=== PATIENT | male | born 1940 | race American Indian/Alaskan Native ===

== ENCOUNTER 2020-11-23 18:12 | Inpatient (IN) | payer MEDICARE, OTHER ==
--- NOTE | 2020-11-23 18:33 | Event Note ---
ED Screening Note ED Screening Note: Patient is an 80-year-old male that comes to the emergency room via EMS with an oxygen saturation of 90 on nasal cannula. He has many major medical problems and is a poor informant. Charge nurse aware of presentation and need for room. This initial assessment/diagnostic orders/clinical plan/treatment(s) is/are subject to change based on patients health status, clinical progression and re- assessment by fellow clinical providers in the ED. Further treatment and workup at subsequent clinical providers discretion. Patient/guardian urged not to elope from the ED as their condition may be serious if not clinically assessed and managed. Initial orders include: ekg xray labs
--- NOTE | 2020-11-23 19:21 | XRay Report ---
CHEST 1 VIEW INDICATION: Chest Pain COMPARISON: None FINDINGS: Support devices: None Heart: Within normal limits. Previous sternotomy. Lungs/Pleura: Suboptimal inspiration, with what is thought to be atelectasis, worse on the left. No c onvincing evidence of acute disease. IMPRESSION: 1. No definite acute disease. Signer Name: Lawrence Cruz MD Signed: 11/23/2020 7:17 PM Workstation Name: [id number]
[2020-11-23 19:45] LABS: Basophils % (Auto) 0.3 % (0.0-1.8); Hematocrit 35.5 % (35.5-45.6); Hemoglobin 12.3 gm/dl (11.8-15.2); Lymphocytes # (Auto) 0.4 K/mm3 (1.2-5.4); Lymphocytes % (Auto) 6.8 % (13.4-35.0); Mean Corpuscular HGB Conc 35 % (32-34); Mean Corpuscular Volume 98 fl (84-94); Monocytes # (Auto) 0.2 K/mm3 (0.0-0.8); Monocytes % (Auto) 4.2 % (0.0-7.3); Platelet Count 201 K/mm3 (140-440); Red Blood Count 3.62 M/mm3 (3.65-5.03); Red Cell Distribution Width 13.9 % (13.2-15.2)
[2020-11-23 19:56] LABS: INR 1.49 (0.87-1.13)
[2020-11-23 20:09] LABS: Albumin 3.5 g/dL (3.9-5); Calcium 9.3 mg/dL (8.4-10.2)
[2020-11-23] MEDS ORDERED: SODIUM CHLORIDE 0.9% 1000 ML 1,000 ML IV ONE (20:41)
[2020-11-23 20:48] LABS: Chol/HDL Ratio 6.63 %
--- NOTE | 2020-11-23 21:03 | Emergency Department Report ---
ED Syncope HPI - General Chief Complaint: Syncope Stated Complaint: LETHARGIC Time Seen by Provider: 11/23/20 18:32 Source: patient Exam Limitations: other - History of Present Illness Initial Comments: 80-year-old male with a past medical history of end-stage renal disease on di alysis Friday, , Friday, diabetes, elevated cholesterol presents to the hospital with a syncopal episode during dialysis. Patient is oriented to the to self, knows he is at a hospital, but does not recall the year. He denies any pain. He is noticeably dyspneic with audible rhonchorous breath sounds. He does report a cough without known fever. Patient's mastic man is Neal Rust Patient comes with his dialysis transportation sheet allergies and pmhx are not listed. Meds include atorvastatin, Midorin, Cilostazol, Plavix, sucroferric Oxyhydroxide, gabapentin, Tums, Dialyvite, and insullin Lispro pt has likely has some mild dementia and unable to provide the missing i nformation. - Related Data Allergies/Adverse Reactions: Allergies No Known Allergies Allergy (Verified 11/24/20 05:46) Home Medications: Ambulatory Orders AtorvaSTATin [Lipitor] 10 mg PO QHS 11/23/20 Calcium Carbonate [Tums Ultra Strength] 940 mg PO TID 11/23/20 Clopidogrel [Plavix] 75 mg PO QDAY 11/23/20 Gabapentin [Neurontin] 100 mg PO QHS 11/23/20 Lispro Insulin [HumaLOG] 0 unit SQ ACHS 11/23/20 Sucroferric Oxyhydroxide(Nf) [Velphoro (Nf)] 500 mg PO TID 11/23/20 cilostazoL [Pletal] 50 mg PO BID 11/23/20 Apixaban [Eliquis] 5 mg PO BID 11/24/20 ED Review of Systems ROS: Stated complaint: LETHARGIC Other details as noted in HPI Comment: All other systems reviewed and negative ED Past Medical Hx - Past Medical History Hx Renal Disease: Yes (esrd dialysis) - Surgical History Additional Surgical History: bilateral aka - Social History Smoking Status: Unknown if ever smoked - Medications Home Medications: Home Medications Medication Instructions Recorded Confirmed Last Taken Type AtorvaSTATin [Lipitor] 10 mg PO QHS 11/23/20 11/23/20 Unknown History Calcium Carbonate [Tums Ultra 940 mg PO TID 11/23/20 11/23/20 Unknown History Strength] Clopidogrel [Plavix] 75 mg PO QDAY 11/23/20 11/23/20 Unknown History Gabapentin [Neurontin] 100 mg PO QHS 11/23/20 11/23/20 Unknown History Lispro Insulin [HumaLOG] 0 unit SQ ACHS 11/23/20 11/23/20 Unknown History Sucroferric Oxyhydroxide(Nf) 500 mg PO TID 11/23/20 11/23/20 Unknown History [Velphoro (Nf)] cilostazoL [Pletal] 50 mg PO BID 11/23/20 11/23/20 Unknown History Apixaban [Eliquis] 5 mg PO BID 11/24/20 11/24/20 11/23/20 08:00 History ED Physical Exam - General Limitations: Physical Limitation - Other Other exam information: General: No acute distress Head: Atraumatic Eyes: normal appearance ENT: Moist mucous membranes Neck: Normal appearance, no midline tenderness Chest: Clear to auscultation bilaterally CV: Mild tachycardia regular rhythm, left arm dialysis access Abdomen: Soft, normal bowel sounds, nontender, nondistended, no rebound or guarding Back: Normal inspection Extremity: Bilateral AKA Neuro: Alert O x 2, no facial asymmetry, speech clear, no gross motor sensory deficit Psych: Appropriate behavior Skin: No rash ED Course Vital Signs 11/23/20 11/23/20 11/23/20 18:27 18:51 18:55 Temperature 98.6 F 98.2 F Pulse Rate 70 107 H Respiratory 18 18 17 Rate Blood Pressure 122/61 Blood Pressure 112/63 [Right] O2 Sat by Pulse 90 97 Oximetry 11/23/20 11/23/20 11/23/20 19:01 19:15 19:31 Temperature Pulse Rate 103 H 102 H 106 H Respiratory 20 21 21 Rate Blood Pressure 116/57 116/57 122/73 Blood Pressure [Right] O2 Sat by Pulse 82 L Oximetry 11/23/20 11/23/20 11/23/20 19:45 20:01 20:10 Temperature 99.5 F Pulse Rate 106 H 113 H Respiratory 26 H 35 H Rate Blood Pressure 129/70 135/60 Blood Pressure [Right] O2 Sat by Pulse 98 Oximetry 1211/23/20 11/23/20 20:15 20:31 20:45 Temperature Pulse Rate 109 H 114 H 108 H Respiratory 36 H 26 H 24 Rate Blood Pressure 135/60 135/60 135/60 Blood Pressure [Right] O2 Sat by Pulse 100 Oximetry 11/23/20 11/23/20 11/23/20 21:00 21:15 21:31 Temperature Pulse Rate 110 H 110 H 110 H Respiratory 26 H 28 H 25 H Rate Blood Pressure 132/70 132/70 132/70 Blood Pressure [Right] O2 Sat by Pulse 96 98 98 Oximetry 11/23/20 11/23/20 11/23/20 21:45 22:01 22:15 Temperature Pulse Rate 112 H 116 H 110 H Respiratory 29 H 29 H 25 H Rate Blood Pressure 132/70 128/59 128/59 Blood Pressure [Right] O2 Sat by Pulse 99 100 100 Oximetry 11/23/20 11/23/20 11/23/20 22:31 22:35 23:03 Temperature Pulse Rate 118 H 117 H 113 H Respiratory 29 H 30 H 23 Rate Blood Pressure 128/59 128/59 128/59 Blood Pressure [Right] O2 Sat by Pulse 98 98 Oximetry 11/23/20 11/23/20 11/24/20 23:15 23:31 04:18 Temperature Pulse Rate 108 H 116 H 126 H Respiratory 30 H 19 33 H Rate Blood Pressure 128/59 128/59 Blood Pressure 122/63 [Right] O2 Sat by Pulse 95 Oximetry 11/24/20 11/24/20 11/24/20 04:53 06:35 08:30 Temperature Pulse Rate 121 H 118 H 117 H Respiratory 32 H 40 H 30 H Rate Blood Pressure 119/66 Blood Pressure 128/94 [Right] O2 Sat by Pulse 100 100 100 Oximetry 11/24/20 11/24/20 11/24/20 09:00 09:35 11:22 Temperature 99.7 F H Pulse Rate 117 H 118 H Respiratory 30 H 30 H 30 H Rate Blood Pressure Blood Pressure 103/67 104/59 [Right] O2 Sat by Pulse 100 100 100 Oximetry 11/24/20 11/24/20 11/24/20 12:02 12:24 12:41 Temperature Pulse Rate 126 H 119 H Respiratory 13 18 Rate Blood Pressure Blood Pressure [Right] O2 Sat by Pulse 95 100 100 Oximetry 11/24/20 11/24/20 11/24/20 12:51 13:01 13:11 Temperature Pulse Rate 124 H 125 H Respiratory 19 19 18 Rate Blood Pressure Blood Pressure [Right] O2 Sat by Pulse 100 96 96 Oximetry 11/24/20 11/24/20 11/24/20 13:21 13:31 13:41 Temperature Pulse Rate 120 H 115 H 120 H Respiratory 23 23 17 Rate Blood Pressure Blood Pressure [Right] O2 Sat by Pulse 96 97 97 Oximetry 11/24/20 11/24/20 11/24/20 13:51 14:01 14:11 Temperature Pulse Rate 113 H 120 H 116 H Respiratory 23 21 22 Rate Blood Pressure Blood Pressure [Right] O2 Sat by Pulse 98 98 99 Oximetry 11/24/20 11/24/20 11/24/20 14:21 14:31 14:40 Temperature Pulse Rate 115 H 104 H 108 H Respiratory 21 22 23 Rate Blood Pressure Blood Pressure [Right] O2 Sat by Pulse 99 99 99 Oximetry 11/24/20 11/24/20 11/24/20 14:45 14:51 15:00 Temperature Pulse Rate 115 H 133 H 114 H Respiratory 16 16 29 H Rate Blood Pressure 128/74 128/52 Blood Pressure 128/74 [Right] O2 Sat by Pulse 99 99 98 Oximetry 11/24/20 11/24/20 11/24/20 15:11 15:21 15:31 Temperature Pulse Rate 117 H 113 H 113 H Respiratory 23 20 14 Rate Blood Pressure 128/52 128/52 128/52 Blood Pressure [Right] O2 Sat by Pulse 98 98 100 Oximetry 11/24/20 11/24/20 15:40 16:01 Temperature Pulse Rate 123 H Respiratory 23 Rate Blood Pressure 128/52 Blood Pressure [Right] O2 Sat by Pulse 99 97 Oximetry ED Medical Decision Making - Lab Data Result diagrams: 11/23/20 19:28 11/24/20 10:32 Lab Results 11/23/20 11/23/20 11/23/20 Range/Units 18:55 19:28 19:28 WBC 5.8 (4.5-11.0) K/mm3 RBC 3.62 L (3.65-5.03) M/mm3 Hgb 12.3 (11.8-15.2) gm/dl Hct 35.5 (35.5-45.6) % MCV 98 H (84-94) fl MCH 34 H (28-32) pg MCHC 35 H (32-34) % RDW 13.9 (13.2-15.2) % Plt Count 201 (140-440) K/mm3 Lymph % (Auto) 6.8 L (13.4-35.0) % [place] % (Auto) 4.2 (0.0-7.3) % Eos % (Auto) 0.0 (0.0-4.3) % Baso % (Auto) 0.3 (0.0-1.8) % Lymph # (Auto) 0.4 L (1.2-5.4) K/mm3 [place] # (Auto) 0.2 (0.0-0.8) K/mm3 Eos # (Auto) 0.0 (0.0-0.4) K/mm3 Baso # (Auto) 0.0 (0.0-0.1) K/mm3 Seg Neutrophils % 88.7 H (40.0-70.0) % Seg Neutrophils # 5.2 (1.8-7.7) K/mm3 PT (12.2-14.9) Sec. INR (0.87-1.13) D-Dimer (0-234) ng/mlDDU ABG pH 7.382 (7.350-7.450) pH Units ABG pCO2 35.6 mm Hg ABG pO2 55.0 L (80.0-90.0) mm Hg ABG HCO3 20.7 (20.0-26.0) mmol/L ABG O2 Saturation 87.5 L (95.0-99.0) % ABG O2 Content 14.0 (0.0-44) ABG Base Excess -3.8 L (-2.0-3.0) mmol/L ABG Hemoglobin 11.6 L (14.0-18.0) gm/dl ABG Carboxyhemoglobin 1.4 (0.0-5.0) % ABG Methemoglobin 0.8 (0.0-1.5) % Oxyhemoglobin 85.6 L (95.0-99.0) % FiO2 21 % Sodium 140 (137-145) mmol/L Potassium 5.3 H (3.6-5.0) mmol/L Chloride 94.4 L (98-107) mmol/L Carbon Dioxide 22 (22-30) mmol/L Anion Gap 29 mmol/L BUN 46 H (9-20) mg/dL Creatinine 5.7 H (0.8-1.3) mg/dL Estimated GFR 10 ml/min BUN/Creatinine Ratio 8 % Glucose 220 H (75-100) mg/dL Lactic Acid (0.7-2.0) mmol/L Calcium 9.3 (8.4-10.2) mg/dL Total Bilirubin 0.60 (0.1-1.2) mg/dL AST 43 H (5-40) units/L ALT 39 (7-56) units/L Alkaline Phosphatase 70 (35-129) units/L Troponin T 0.376 H* (0.00-0.029) ng/mL NT-Pro-B Natriuret Pep 13609 H (0-900) pg/mL Total Protein 7.6 (6.3-8.2) g/dL Albumin 3.5 L (3.9-5) g/dL Albumin/Globulin Ratio 0.9 % Triglycerides 202 H (2-149) mg/dL Cholesterol 252 H (50-199) mg/dL LDL Cholesterol Direct 165 H (50-130) mg/dL HDL Cholesterol 38 L (40-59) mg/dL Cholesterol/HDL Ratio 6.63 % 11/23/20 11/23/20 11/23/20 Range/Units 19:28 19:28 19:28 WBC (4.5-11.0) K/mm3 RBC (3.65-5.03) M/mm3 Hgb (11.8-15.2) gm/dl Hct (35.5-45.6) % MCV (84-94) fl MCH (28-32) pg MCHC (32-34) % RDW (13.2-15.2) % Plt Count (140-440) K/mm3 Lymph % (Auto) (13.4-35.0) % [place] % (Auto) (0.0-7.3) % Eos % (Auto) (0.0-4.3) % Baso % (Auto) (0.0-1.8) % Lymph # (Auto) (1.2-5.4) K/mm3 [place] # (Auto) (0.0-0.8) K/mm3 Eos # (Auto) (0.0-0.4) K/mm3 Baso # (Auto) (0.0-0.1) K/mm3 Seg Neutrophils % (40.0-70.0) % Seg Neutrophils # (1.8-7.7) K/mm3 PT 17.9 H (12.2-14.9) Sec. INR 1.49 H (0.87-1.13) D-Dimer 1524 H (0-234) ng/mlDDU ABG pH (7.350-7.450) pH Units ABG pCO2 mm Hg ABG pO2 (80.0-90.0) mm Hg ABG HCO3 (20.0-26.0) mmol/L ABG O2 Saturation (95.0-99.0) % ABG O2 Content (0.0-44) ABG Base Excess (-2.0-3.0) mmol/L ABG Hemoglobin (14.0-18.0) gm/dl ABG Carboxyhemoglobin (0.0-5.0) % ABG Methemoglobin (0.0-1.5) % Oxyhemoglobin (95.0-99.0) % FiO2 % Sodium (137-145) mmol/L Potassium (3.6-5.0) mmol/L Chloride (98-107) mmol/L Carbon Dioxide (22-30) mmol/L Anion Gap mmol/L BUN (9-20) mg/dL Creatinine (0.8-1.3) mg/dL Estimated GFR ml/min BUN/Creatinine Ratio % Glucose (75-100) mg/dL Lactic Acid 3.40 H* (0.7-2.0) mmol/L Calcium (8.4-10.2) mg/dL Total Bilirubin (0.1-1.2) mg/dL AST (5-40) units/L ALT (7-56) units/L Alkaline Phosphatase (35-129) units/L Troponin T (0.00-0.029) ng/mL NT-Pro-B Natriuret Pep (0-900) pg/mL Total Protein (6.3-8.2) g/dL Albumin (3.9-5) g/dL Albumin/Globulin Ratio % Triglycerides (2-149) mg/dL Cholesterol (50-199) mg/dL LDL Cholesterol Direct (50-130) mg/dL HDL Cholesterol (40-59) mg/dL Cholesterol/HDL Ratio % // Range/Units 21:41 WBC (4.5-11.0) K/mm3 RBC (3.65-5.03) M/mm3 Hgb (11.8-15.2) gm/dl Hct (35.5-45.6) % MCV (84-94) fl MCH (28-32) pg MCHC (32-34) % RDW (13.2-15.2) % Plt Count (140-440) K/mm3 Lymph % (Auto) (13.4-35.0) % [place] % (Auto) (0.0-7.3) % Eos % (Auto) (0.0-4.3) % Baso % (Auto) (0.0-1.8) % Lymph # (Auto) (1.2-5.4) K/mm3 [place] # (Auto) (0.0-0.8) K/mm3 Eos # (Auto) (0.0-0.4) K/mm3 Baso # (Auto) (0.0-0.1) K/mm3 Seg Neutrophils % (40.0-70.0) % Seg Neutrophils # (1.8-7.7) K/mm3 PT (12.2-14.9) Sec. INR (0.87-1.13) D-Dimer (0-234) ng/mlDDU ABG pH (7.350-7.450) pH Units ABG pCO2 mm Hg ABG pO2 (80.0-90.0) mm Hg ABG HCO3 (20.0-26.0) mmol/L ABG O2 Saturation (95.0-99.0) % ABG O2 Content (0.0-44) ABG Base Excess (-2.0-3.0) mmol/L ABG Hemoglobin (14.0-18.0) gm/dl ABG Carboxyhemoglobin (0.0-5.0) % ABG Methemoglobin (0.0-1.5) % Oxyhemoglobin (95.0-99.0) % FiO2 % Sodium (137-145) mmol/L Potassium (3.6-5.0) mmol/L Chloride (98-107) mmol/L Carbon Dioxide (22-30) mmol/L Anion Gap mmol/L BUN (9-20) mg/dL Creatinine (0.8-1.3) mg/dL Estimated GFR ml/min BUN/Creatinine Ratio % Glucose (75-100) mg/dL Lactic Acid 2.30 H* (0.7-2.0) mmol/L Calcium (8.4-10.2) mg/dL Total Bilirubin (0.1-1.2) mg/dL AST (5-40) units/L ALT (7-56) units/L Alkaline Phosphatase (35-129) units/L Troponin T (0.00-0.029) ng/mL NT-Pro-B Natriuret Pep (0-900) pg/mL Total Protein (6.3-8.2) g/dL Albumin (3.9-5) g/dL Albumin/Globulin Ratio % Triglycerides (2-149) mg/dL Cholesterol (50-199) mg/dL LDL Cholesterol Direct (50-130) mg/dL HDL Cholesterol (40-59) mg/dL Cholesterol/HDL Ratio % - EKG Data -: EKG Interpreted by Me (Anterior infarct, PVCs) EKG shows normal: sinus rhythm Rate: tachycardia - Radiology Data Radiology results: report reviewed Chest x-ray: Suboptimal inspiration, which is what is thought to be atelectasis, worse on the left. No convincing evidence of acute disease CT head: No acute findings cta chest: no pe, b/l pneumonia L>R - Medical Decision Making 80-year-old male presents to the hospital after syncopal episode in dialysis. Hypoxic upon arrival with ABG to confirm hypoxia on room air. CT angio chest confirms bilateral interstitial infiltrates. Patient in respiratory isolation for Covid pneumonia. Patient received Rocephin and azithromycin for community- acquired pneumonia. O2 saturation improved with supplemental oxygenation. No signs of septic shock or severe sepsis. Lactic acidosis improved with mild IV hydration. Mild hyperkalemia noted likely secondary to patient not completing dialysis. Patient received Decadron x1 and ID consult and nephrology consult ordered. Patient to be admitted to hospital service for further treatment Critical Care Time: No Critical care attestation.: If time is entered above; I have spent that time in minutes in the direct care of this critically ill patient, excluding procedure time. ED Disposition Clinical Impression: Bilateral interstitial pneumonia, Hypoxia, Suspected COVID-19 virus infection, ESRD on dialysis, Syncope Disposition: OP ADMIT IP TO THIS HOSP Is pt being admited?: Yes Condition: Stable Time of Disposition: 00:15 (Dr Ellsworth/hospitalist)
[2020-11-23 21:04] LABS: ABG Base Excess -3.8 mmol/L (-2.0-3.0); ABG HCO3 20.7 mmol/L (20.0-26.0); ABG Methemoglobin 0.8 % (0.0-1.5); ABG Oxygen Saturation 87.5 % (95.0-99.0); ABG PCO2 35.6 mm Hg; ABG PH 7.382 pH Units (7.350-7.450)
--- NOTE | 2020-11-23 23:22 | Cat Scan Report ---
CT HEAD WITHOUT CONTRAST INDICATION: syncope during dialysis, hypoxia TECHNIQUE: All CT scans at this location are performed using CT dose reduction for ALARA by means of automated exposure control. COMPARISON: None available. FINDINGS: BRAIN: No hemorrhage or mass effect are seen. No evidence of acute infarction is noted. Moderate whit e matter microvascular changes are seen. Mild atrophic changes are noted. Mild motion artifact is see n. ORBITS: Normal as visualized. SOFT TISSUES OF HEAD: Normal. CALVARIUM: Normal. VISUALIZED PARANASAL SINUSES AND MASTOID AIR CELLS: Clear. ADDITIONAL FINDINGS: None. IMPRESSION: No acute intracranial abnormality. Signer Name: Rene Chapin MD Signed: 11/23/2020 11:17 PM Workstation Name: [id number]
--- NOTE | 2020-11-23 23:37 | Cat Scan Report ---
CTA CHEST WITH IV CONTRAST INDICATION: hypoxia, syncope, sob CONTRAST: 100 cc Omnipaque 350 IV COMPARISON: Portable chest x-ray tonight Three-plane MIP reconstructions were produced. All CT scans at this location are performed using CT d ose reduction for ALARA by means of automated exposure control. FINDINGS: Median sternotomy changes are noted. No significant axillary lesions are seen. Prominent bi lateral gynecomastia is noted. Visualized portions of the upper abdomen show mild renal atrophy bilat erally. Possibly there are small gallstones though this may be artifactual. No acute gallbladder abno rmalities are seen. No mediastinal or hilar masses are noted. Elevation of the left hemidiaphragm is seen. No pneumothorax or pneumomediastinum are noted. No obvious endobronchial focal lesions are seen though there probably is a small amount of mucus posteriorly in the trachea and mainstem bronchi. Mo derate alveolar type infiltrate is seen in the left lower lobe consistent with pneumonitis. Air bronc hograms are seen. Volume loss is noted. Patchy moderate infiltrate is seen in the right lower lobe an d right upper lobe and a small amount of left upper lobe infiltrate and atelectasis are noted. Mild s imilar changes are seen in the upper lobes. Bilateral upper lobe slight focal densities probably are part of interstitial infiltrate to have a slightly nodular appearance. Coronary artery catheter cases are moderately prominent. Aorta shows moderate atherosclerotic changes but no aneurysmal dilatation or evidence of dissection. Adequate opacification of the pulmonary arterial system was achieved. Motion artifact degrades evalua tion of some of the smaller arteries. However, no obvious evidence of pulmonary thromboembolism is se en. IMPRESSION: 1. No evidence of pulmonary embolism was 2. Evidence of bilateral pneumonia, worse on the left Signer Name: Rene Chapin MD Signed: 11/23/2020 11:32 PM Workstation Name: [id number]
[2020-11-24] MEDS ORDERED: cefTRIAXone/NS 2 GM/100 ML 2 GM/100 ML BAG IV ONE (00:04)
[2020-11-24] MEDS ORDERED: AZITHROMYCIN 500 MG in SODIUM CHLORIDE 0.9% 250ML 250 ML IV ONE (00:04)
[2020-11-24] MEDS ORDERED: dexAMETHasone 4 MG/ML VIAL IV ONE (00:05)
[2020-11-24] MEDS ORDERED: DEXTROSE 50% IN WATER (25GM) 50 ML SYRINGE IV PRN (00:58)
[2020-11-24] MEDS ORDERED: ACETAMINOPHEN 325 MG TAB PO PRN (00:58)
[2020-11-24] MEDS ORDERED: ONDANSETRON 4 MG/2 ML INJ IV PRN (00:58)
[2020-11-24] MEDS ORDERED: MORPHINE 2 MG/1 ML INJ IV PRN (00:58)
[2020-11-24] MEDS ORDERED: MAGNESIUM HYDROXIDE (MOM) ORAL LIQD UDC PO PRN (00:58)
--- NOTE | 2020-11-24 01:25 | History and Physical Report ---
History of Present Illness Date of examination: 11/24/20 Date of admission: 11/24/2019 Chief complaint: syncope History of present illness: 80-year-old male with known history of end-stage renal disease on dialysis on Tuesdays, and Saturdays, diabetes mellitus and dyslipidemia was brought into the emergency room with a syncopal episode during dialysis. Bobby vences is a poor historian but was able to answer questions. He denies any fever or chills, no chest pain, states he has been having some cough which is nonproductive. Upon arrival in the emergency room patient was seen some mild respiratory distress. Work-up today, CT scan of the head did not reveal any acute findings CT angiogram of the chest reveals bilateral pneumonia worse on the left Patient has been admitted for syncope, pneumonia with possible COVID-19. Past History Past Medical History: diabetes, dialysis, ESRD, hyperlipidemia Past Surgical History: Other (Bilateral AKA) Social history: no significant social history Family history: no significant family history Medications and Allergies Allergies Allergy/AdvReac Type Severity Reaction Status Date / Time No Known Allergies Allergy Verified 11/24/20 05:46 Home Medications Medication Instructions Recorded Confirmed Last Taken Type AtorvaSTATin [Lipitor] 10 mg PO QHS 11/23/20 11/23/20 Unknown History Calcium Carbonate [Tums Ultra 940 mg PO TID 11/23/20 11/23/20 Unknown History Strength] Clopidogrel [Plavix] 75 mg PO QDAY 11/23/20 11/23/20 Unknown History Gabapentin [Neurontin] 100 mg PO QHS 11/23/20 11/23/20 Unknown History Lispro Insulin [HumaLOG] 0 unit SQ ACHS 11/23/20 11/23/20 Unknown History Sucroferric Oxyhydroxide(Nf) 500 mg PO TID 11/23/20 11/23/20 Unknown History [Velphoro (Nf)] cilostazoL [Pletal] 50 mg PO BID 11/23/20 11/23/20 Unknown History Apixaban [Eliquis] 5 mg PO BID 11/24/20 11/24/20 11/23/20 08:00 History Active Meds: Active Medications Acetaminophen (Acetaminophen 325 Mg Tab) 650 mg PO Q4H PRN PRN Reason: Pain MILD(1-3)/Fever >100.5/CARDENAS Dextrose (Dextrose 50% In Water (25gm) 50 Ml Syringe) 50 ml IV Q30MIN PRN; Protocol PRN Reason: Hypoglycemia Heparin Sodium (Porcine) (Heparin 5,000 Unit/1 Ml Vial) 5,000 unit SUB-Q Q8HR [facility] Ceftriaxone Sodium (Rocephin/Ns 2 Gm/100 Ml) 2 gm in 100 mls @ 200 mls/hr IV Q24H [facility]; Protocol Azithromycin 500 mg/ Sodium (Chloride) 250 mls @ 250 mls/hr IV Q24H [facility]; Protocol Insulin Human Lispro (Insulin Lispro 100 Unit/Ml Vial 3 Ml) 0 unit SUB-Q ACHS [facility]; Protocol Magnesium Hydroxide (Magnesium Hydroxide (Mom) Oral Liqd Udc) 30 ml PO Q4H PRN PRN Reason: Constipation Morphine Sulfate (Morphine 2 Mg/1 Ml Inj) 2 mg IV Q4H PRN PRN Reason: Pain, Moderate (4-6) Ondansetron HCl (Ondansetron 4 Mg/2 Ml Inj) 4 mg IV Q8H PRN PRN Reason: Nausea And Vomiting Sodium Chloride (Sodium Chloride 0.9% 10 Ml Flush Syringe) 10 ml IV BID [facility] Sodium Chloride (Sodium Chloride 0.9% 10 Ml Flush Syringe) 10 ml IV PRN PRN PRN Reason: LINE FLUSH Review of Systems Constitutional: no fever, no chills Ears, nose, mouth and throat: no nasal congestion, no sore throat Cardiovascular: no chest pain, no palpitations Respiratory: no cough, no shortness of breath Gastrointestinal: no abdominal pain, no nausea, no vomiting, no diarrhea Genitourinary Male: no dysuria, no hematuria, no flank pain, no nocturia Musculoskeletal: no neck pain, no low back pain Integumentary: no rash, no pruritis Neurological: no headaches, no confusion Psychiatric: no anxiety, no depression Exam - Constitutional Vitals: Temp Pulse Resp BP Pulse Ox 99.5 F 118 H 29 H 128/59 98 11/23/20 20:10 11/23/20 22:31 11/23/20 22:31 11/23/20 22:31 11/23/20 22:31 General appearance: Present: no acute distress, well-nourished - EENT Eyes: Present: PERRL, EOM intact. Absent: scleral icterus ENT: hearing intact, clear oral mucosa, dentition normal - Neck Neck: Present: supple, normal ROM - Respiratory Respiratory effort: normal Respiratory: bilateral: diminished - Cardiovascular Rhythm: regular Heart Sounds: Present: S1 & S2. Absent: gallop, systolic murmur, diastolic murmur, rub - Extremities Extremities: abnormal (Kobe AKA) Peripheral Pulses: within normal limits - Abdominal General gastrointestinal: Present: soft, non-tender, non-distended, normal bowel sounds. Absent: mass - Integumentary Integumentary: Present: clear, warm, dry. Absent: rash - Musculoskeletal Musculoskeletal: strength equal bilaterally - Psychiatric Psychiatric: appropriate mood/affect, intact judgment & insight, memory intact, cooperative - Neurologic Neurologic: CNII-XII intact, no focal deficits, moves all extremities HEART Score - HEART Score Troponin: Troponin T 0.376 ng/mL (0.00-0.029) H* 11/23/20 19:28 Results - Labs CBC & Chem 7: 11/25/20 03:39 11/26/20 04:30 Labs: Abnormal lab results 11/23/20 11/23/20 11/23/20 Range/Units 18:55 19:28 19:28 RBC 3.62 L (3.65-5.03) M/mm3 MCV 98 H (84-94) fl MCH 34 H (28-32) pg MCHC 35 H (32-34) % Lymph % (Auto) 6.8 L (13.4-35.0) % Lymph # (Auto) 0.4 L (1.2-5.4) K/mm3 Seg Neutrophils % 88.7 H (40.0-70.0) % PT (12.2-14.9) Sec. INR (0.87-1.13) D-Dimer (0-234) ng/mlDDU ABG pO2 55.0 L (80.0-90.0) mm Hg ABG O2 Saturation 87.5 L (95.0-99.0) % ABG Base Excess -3.8 L (-2.0-3.0) mmol/L ABG Hemoglobin 11.6 L (14.0-18.0) gm/dl Oxyhemoglobin 85.6 L (95.0-99.0) % Potassium 5.3 H (3.6-5.0) mmol/L Chloride 94.4 L (98-107) mmol/L BUN 46 H (9-20) mg/dL Creatinine 5.7 H (0.8-1.3) mg/dL Glucose 220 H (75-100) mg/dL Lactic Acid (0.7-2.0) mmol/L AST 43 H (5-40) units/L Troponin T 0.376 H* (0.00-0.029) ng/mL NT-Pro-B Natriuret Pep 54848 H (0-900) pg/mL Albumin 3.5 L (3.9-5) g/dL Triglycerides 202 H (2-149) mg/dL Cholesterol 252 H (50-199) mg/dL LDL Cholesterol Direct 165 H (50-130) mg/dL HDL Cholesterol 38 L (40-59) mg/dL 11/23/20 11/23/20 11/23/20 Range/Units 19:28 19:28 19:28 RBC (3.65-5.03) M/mm3 MCV (84-94) fl MCH (28-32) pg MCHC (32-34) % Lymph % (Auto) (13.4-35.0) % Lymph # (Auto) (1.2-5.4) K/mm3 Seg Neutrophils % (40.0-70.0) % PT 17.9 H (12.2-14.9) Sec. INR 1.49 H (0.87-1.13) D-Dimer 1524 H (0-234) ng/mlDDU ABG pO2 (80.0-90.0) mm Hg ABG O2 Saturation (95.0-99.0) % ABG Base Excess (-2.0-3.0) mmol/L ABG Hemoglobin (14.0-18.0) gm/dl Oxyhemoglobin (95.0-99.0) % Potassium (3.6-5.0) mmol/L Chloride (98-107) mmol/L BUN (9-20) mg/dL Creatinine (0.8-1.3) mg/dL Glucose (75-100) mg/dL Lactic Acid 3.40 H* (0.7-2.0) mmol/L AST (5-40) units/L Troponin T (0.00-0.029) ng/mL NT-Pro-B Natriuret Pep (0-900) pg/mL Albumin (3.9-5) g/dL Triglycerides (2-149) mg/dL Cholesterol (50-199) mg/dL LDL Cholesterol Direct (50-130) mg/dL HDL Cholesterol (40-59) mg/dL 11/23/20 Range/Units 21:41 RBC (3.65-5.03) M/mm3 MCV (84-94) fl MCH (28-32) pg MCHC (32-34) % Lymph % (Auto) (13.4-35.0) % Lymph # (Auto) (1.2-5.4) K/mm3 Seg Neutrophils % (40.0-70.0) % PT (12.2-14.9) Sec. INR (0.87-1.13) D-Dimer (0-234) ng/mlDDU ABG pO2 (80.0-90.0) mm Hg ABG O2 Saturation (95.0-99.0) % ABG Base Excess (-2.0-3.0) mmol/L ABG Hemoglobin (14.0-18.0) gm/dl Oxyhemoglobin (95.0-99.0) % Potassium (3.6-5.0) mmol/L Chloride (98-107) mmol/L BUN (9-20) mg/dL Creatinine (0.8-1.3) mg/dL Glucose (75-100) mg/dL Lactic Acid 2.30 H* (0.7-2.0) mmol/L AST (5-40) units/L Troponin T (0.00-0.029) ng/mL NT-Pro-B Natriuret Pep (0-900) pg/mL Albumin (3.9-5) g/dL Triglycerides (2-149) mg/dL Cholesterol (50-199) mg/dL LDL Cholesterol Direct (50-130) mg/dL HDL Cholesterol (40-59) mg/dL Assessment and Plan - Patient Problems (1) Bilateral interstitial pneumonia Current Visit: Yes Status: Acute Plan to address problem: Patient placed on empiric IV antibiotics. We await culture result. We will also rule out for COVID-19. (2) Diabetes mellitus Current Visit: Yes Status: Acute Plan to address problem: We will monitor Accu-Cheks. (3) ESRD on dialysis Current Visit: Yes Status: Chronic Plan to address problem: Patient will be placed on dialysis. We will place consult to nephrology. (4) Hypoxia Current Visit: Yes Status: Acute Plan to address problem: Possibly secondary to the pneumonia. We will keep O2 saturation greater or equal to 94%. (5) Suspected COVID-19 virus infection Current Visit: Yes Status: Acute Plan to address problem: We will await COVID-19 testing. Consult will be placed to infectious disease for follow-up. (6) Syncope Current Visit: Yes Status: Deleted Plan to address problem: Etiology unclear. Will monitor vital signs closely. Patient be scheduled for echocardiogram. (7) DVT prophylaxis Current Visit: Yes Status: Acute Plan to address problem: Patient currently on anticoagulation. (8) Full code status Current Visit: Yes Status: Acute Plan to address problem: Patient is a full code.
[2020-11-24] MEDS ORDERED: HEPARIN 5,000 UNIT/1 ML VIAL SUB-Q SCH (06:00)
[2020-11-24 06:17] LABS: C-Reactive Protein 34.7 mg/dL (0.00-1.30)
[2020-11-24] MEDS ORDERED: CALCIUM CARBONATE 470 MG PO SCH (08:00)
[2020-11-24] MEDS ORDERED: SUCROFERRIC OXYHYDROXIDE 500 MG PO SCH (08:00)
[2020-11-24] MEDS ORDERED: APIXABAN 5 MG TAB PO SCH (10:00)
[2020-11-24] MEDS ORDERED: SODIUM CHLORIDE 0.9% 100 ML IV PRN (10:08)
--- NOTE | 2020-11-24 10:08 | Consultation ---
History of Present Illness - Reason for Consult Consult date: 11/24/20 end stage renal disease - History of Present Illness 80-year-old male with a past medical history of end-stage renal disease on dialysis Friday, , Friday, diabetes, elevated cholesterol presents to the hospital who has been admitted to the [facility] with syncope. Pt is awake, He has had some cough, SHOB as well as well. His K is high. ROS: As in HPI otherwise 12 point review of systems -ve Past History Past Medical History: diabetes, dialysis, ESRD, hyperlipidemia Past Surgical History: Other (Bilateral AKA) Social history: no significant social history Family history: no significant family history Medications and Allergies Allergies Allergy/AdvReac Type Severity Reaction Status Date / Time No Known Allergies Allergy Verified 11/24/20 05:46 Home Medications Medication Instructions Recorded Confirmed Last Taken Type AtorvaSTATin [Lipitor] 10 mg PO QHS 11/23/20 11/23/20 Unknown History Calcium Carbonate [Tums Ultra 940 mg PO TID 11/23/20 11/23/20 Unknown History Strength] Clopidogrel [Plavix] 75 mg PO QDAY 11/23/20 11/23/20 Unknown History Gabapentin [Neurontin] 100 mg PO QHS 11/23/20 11/23/20 Unknown History Lispro Insulin [HumaLOG] 0 unit SQ ACHS 11/23/20 11/23/20 Unknown History Sucroferric Oxyhydroxide(Nf) 500 mg PO TID 11/23/20 11/23/20 Unknown History [Velphoro (Nf)] cilostazoL [Pletal] 50 mg PO BID 11/23/20 11/23/20 Unknown History Apixaban [Eliquis] 5 mg PO BID 11/24/20 11/24/20 11/23/20 08:00 History Active Meds: Active Medications Acetaminophen (Acetaminophen 325 Mg Tab) 650 mg PO Q4H PRN PRN Reason: Pain MILD(1-3)/Fever >100.5/CARDENAS Apixaban (Apixaban 2.5 Mg Tab) 2.5 mg PO BID [facility]; Protocol Atorvastatin Calcium (Atorvastatin 10 Mg Tab) 10 mg PO QHS [facility] Calcium Carbonate/Glycine (Calcium Carbonate 500 Mg Tab Chew) 1,000 mg PO TIDWM [facility] Cilostazol (Cilostazol 100 Mg Tab) 50 mg PO BID [facility] Clopidogrel Bisulfate (Clopidogrel 75 Mg Tab) 75 mg PO QDAY [facility] Dexamethasone (Dexamethasone 4 Mg/Ml Vial) 6 mg IV Q24HR [facility] Dextrose (Dextrose 50% In Water (25gm) 50 Ml Syringe) 50 ml IV Q30MIN PRN; Protocol PRN Reason: Hypoglycemia Gabapentin (Gabapentin 100 Mg Cap) 100 mg PO QHS [facility] Ceftriaxone Sodium (Rocephin/Ns 2 Gm/100 Ml) 2 gm in 100 mls @ 200 mls/hr IV Q24H [facility]; Protocol Azithromycin 500 mg/ Sodium (Chloride) 250 mls @ 250 mls/hr IV Q24H [facility]; Protocol Insulin Human Lispro (Insulin Lispro 100 Unit/Ml Vial 3 Ml) 0 unit SUB-Q ACHS [facility]; Protocol Magnesium Hydroxide (Magnesium Hydroxide (Mom) Oral Liqd Udc) 30 ml PO Q4H PRN PRN Reason: Constipation Miscellaneous Medication (Sucroferric Oxyhydroxide(Nf)) 500 mg PO TID [facility] Morphine Sulfate (Morphine 2 Mg/1 Ml Inj) 2 mg IV Q4H PRN PRN Reason: Pain, Moderate (4-6) Ondansetron HCl (Ondansetron 4 Mg/2 Ml Inj) 4 mg IV Q8H PRN PRN Reason: Nausea And Vomiting Sodium Chloride (Sodium Chloride 0.9% 10 Ml Flush Syringe) 10 ml IV BID [facility] Sodium Chloride (Sodium Chloride 0.9% 10 Ml Flush Syringe) 10 ml IV PRN PRN PRN Reason: LINE FLUSH Exam - Vital Signs Vital signs: Vital Signs Temp Pulse Resp BP Pulse Ox 98.6 F 70 18 122/61 90 11/23/20 18:27 11/23/20 18:27 11/23/20 18:27 11/23/20 18:27 11/23/20 18:27 - Physical Exam Narrative exam: General: Awake Head: Atraumatic Eyes: normal appearance ENT: Moist mucous membranes Neck: Normal appearance, no midline tenderness Chest: Clear to auscultation bilaterally CV: Mild tachycardia regular rhythm, left arm dialysis access Abdomen: Soft, normal bowel sounds, nontender, nondistended, no rebound or guarding Back: Normal inspection Extremity: Bilateral AKA Neuro: AAOX2 Psych: Appropriate behavior Skin: No rash Results - Lab Results 11/23/20 19:28 01/01/21 10:32 Most recent lab results ABG pH 7.382 pH Units (7.350-7.450) 11/23/20 18:55 ABG pCO2 35.6 mm Hg 11/23/20 18:55 ABG pO2 55.0 mm Hg (80.0-90.0) L 11/23/20 18:55 ABG HCO3 20.7 mmol/L (20.0-26.0) 11/23/20 18:55 ABG O2 Saturation 87.5 % (95.0-99.0) L 11/23/20 18:55 Calcium 9.3 mg/dL (8.4-10.2) 11/23/20 19:28 Assessment and Plan ESRD on HD: Hyperkalemia: Covid 19 infection: Syncope: Metabolic acidosis: Insulin/D50/Ca gluconate ordered for high K HD today and tomorrow Renally dose all meds Strict I/Os Santos Quesada MD [phone]
[2020-11-24] MEDS ORDERED: INSULIN LISPRO 100 UNIT/ML SUB-Q ONE (10:30)
[2020-11-24] MEDS: INSULIN LISPRO 100 UNIT/ML VIAL 3 mL SUB-Q SCH ×3 (10:37→19:45)
[2020-11-24] MEDS: dexAMETHasone 4 MG/ML VIAL IV SCH (10:41)
[2020-11-24 11:23] LABS: Calcium 8.7 mg/dL (8.4-10.2)
[2020-11-24] MEDS: CALCIUM CARBONATE 500 MG TAB CHEW PO SCH ×3 (12:04→19:46)
[2020-11-24] MEDS: CLOPIDOGREL 75 MG TAB PO SCH (12:04)
[2020-11-24] MEDS: APIXABAN 2.5 MG TAB PO SCH (12:04)
[2020-11-24] MEDS: CILOSTAZOL 100 MG TAB PO SCH (14:40)
[2020-11-24] MEDS ORDERED: INSULIN REGULAR, HUMAN 100 UNIT/ML 3ML VIAL IV ONE (17:00)
[2020-11-24] MEDS ORDERED: DEXTROSE 50% IN WATER (25GM) 50 ML SYRINGE IV ONE (17:00)
[2020-11-24] MEDS ORDERED: CALCIUM GLUCONATE 2,000 MG in SODIUM CHLORIDE 0.9% 100 ML IV ONE ×2 (17:00→18:37)
--- NOTE | 2020-11-24 17:06 | Consultation ---
History of Present Illness - Reason for Consult Consult date: 11/24/20 - History of Present Illness 80-year-old male past medical history ESRD on HD, diabetes, cholesterol presented to hospital with syncope during dialysis. On presentation he was subsequently alert and oriented mostly. He was dyspneic on presentation with a reported cough. Denied fever. Afebrile with a T-max of 99.7. Currently on ceftriaxone azithromycin. Covid testing positive. White count 5.8. Imaging personally reviewed: Chest CTA: No PE. Bilateral pneumonia. Review of systems deferred due to PPE conservation strategy. Past History Past Medical History: diabetes, dialysis, ESRD, hyperlipidemia Past Surgical History: Other (Bilateral AKA) Social history: no significant social history Family history: no significant family history Medications and Allergies Allergies Allergy/AdvReac Type Severity Reaction Status Date / Time No Known Allergies Allergy Verified 11/24/20 05:46 Home Medications Medication Instructions Recorded Confirmed Last Taken Type AtorvaSTATin [Lipitor] 10 mg PO QHS 11/23/20 11/23/20 Unknown History Calcium Carbonate [Tums Ultra 940 mg PO TID 11/23/20 11/23/20 Unknown History Strength] Clopidogrel [Plavix] 75 mg PO QDAY 11/23/20 11/23/20 Unknown History Gabapentin [Neurontin] 100 mg PO QHS 11/23/20 11/23/20 Unknown History Lispro Insulin [HumaLOG] 0 unit SQ ACHS 11/23/20 11/23/20 Unknown History Sucroferric Oxyhydroxide(Nf) 500 mg PO TID 11/23/20 11/23/20 Unknown History [Velphoro (Nf)] cilostazoL [Pletal] 50 mg PO BID 11/23/20 11/23/20 Unknown History Apixaban [Eliquis] 5 mg PO BID 11/24/20 11/24/20 11/23/20 08:00 History Active Meds: Active Medications Acetaminophen (Acetaminophen 325 Mg Tab) 650 mg PO Q4H PRN PRN Reason: Pain MILD(1-3)/Fever >100.5/[place] Apixaban (Apixaban 2.5 Mg Tab) 2.5 mg PO BID [facility]; Protocol Last Admin: 11/24/20 12:04 Dose: 2.5 mg Documented by: Atorvastatin Calcium (Atorvastatin 10 Mg Tab) 10 mg PO QHS [facility] Calcium Carbonate/Glycine (Calcium Carbonate 500 Mg Tab Chew) 1,000 mg PO TIDWM [facility] Last Admin: 11/24/20 13:29 Dose: Not Given Documented by: Cilostazol (Cilostazol 100 Mg Tab) 50 mg PO BID [facility] Last Admin: 11/24/20 14:40 Dose: 50 mg Documented by: Clopidogrel Bisulfate (Clopidogrel 75 Mg Tab) 75 mg PO QDAY [facility] Last Admin: 11/24/20 12:04 Dose: 75 mg Documented by: Dexamethasone (Dexamethasone 4 Mg/Ml Vial) 6 mg IV Q24HR [facility] Last Admin: 11/24/20 10:41 Dose: 6 mg Documented by: Dextrose (Dextrose 50% In Water (25gm) 50 Ml Syringe) 50 ml IV Q30MIN PRN; Protocol PRN Reason: Hypoglycemia Gabapentin (Gabapentin 100 Mg Cap) 100 mg PO QHS [facility] Ceftriaxone Sodium (Rocephin/Ns 2 Gm/100 Ml) 2 gm in 100 mls @ 200 mls/hr IV Q24H [facility]; Protocol Azithromycin 500 mg/ Sodium (Chloride) 250 mls @ 250 mls/hr IV Q24H [facility]; Protocol Sodium Chloride (Nacl 0.9%) 100 mls @ 999 mls/hr IV [place]ILL[place] PRN PRN Reason: Hypotension Calcium Gluconate 2,000 mg/ (Sodium Chloride) 120 mls @ 660 mls/hr IV ONCE ONE Stop: 11/24/20 17:10 Last Admin: 11/24/20 16:39 Dose: 660 mls/hr Documented by: Insulin Human Lispro (Insulin Lispro 100 Unit/Ml Vial 3 Ml) 0 unit SUB-Q ACHS [facility]; Protocol Last Admin: 11/24/20 14:40 Dose: 6 unit Documented by: Magnesium Hydroxide (Magnesium Hydroxide (Mom) Oral Liqd Udc) 30 ml PO Q4H PRN PRN Reason: Constipation Miscellaneous Medication (Sucroferric Oxyhydroxide(Nf)) 500 mg PO TID [facility] Last Admin: 11/24/20 12:03 Dose: Not Given Documented by: Morphine Sulfate (Morphine 2 Mg/1 Ml Inj) 2 mg IV Q4H PRN PRN Reason: Pain, Moderate (4-6) Ondansetron HCl (Ondansetron 4 Mg/2 Ml Inj) 4 mg IV Q8H PRN PRN Reason: Nausea And Vomiting Sodium Chloride (Sodium Chloride 0.9% 10 Ml Flush Syringe) 10 ml IV BID [facility] Last Admin: 11/24/20 10:44 Dose: 10 ml Documented by: Sodium Chloride (Sodium Chloride 0.9% 10 Ml Flush Syringe) 10 ml IV PRN PRN PRN Reason: LINE FLUSH Sodium Polystyrene Sulfonate (Sodium Polystyrene 15 Gm/60 Ml Oral Liqd) 60 gm AL ONCE ONE Stop: 11/24/20 17:24 Last Admin: 11/24/20 16:51 Dose: 60 gm Documented by: Physical Examination - Physical Exam Narrative exam: Physical exam deferred due to PPE conservation strategy. Please refer to primary team's note. - Constitutional Vitals: Vital Signs Temp Pulse Resp BP Pulse Ox 99.7 F H 115 H 16 128/74 97 11/24/20 11:22 11/24/20 14:45 11/24/20 14:45 11/24/20 14:45 11/24/20 16:01 Temperature -Last 24 Hours Temperature 99.7 F Temperature 99.5 F Temperature 98.2 F Temperature 98.6 F Results - Labs CBC & Chem 7: 11/23/20 19:28 11/24/20 10:32 Labs: Abnormal lab results 11/23/20 11/23/20 11/23/20 Range/Units 18:55 19:28 19:28 RBC 3.62 L (3.65-5.03) M/mm3 MCV 98 H (84-94) fl MCH 34 H (28-32) pg MCHC 35 H (32-34) % Lymph % (Auto) 6.8 L (13.4-35.0) % Lymph # (Auto) 0.4 L (1.2-5.4) K/mm3 Seg Neutrophils % 88.7 H (40.0-70.0) % PT (12.2-14.9) Sec. INR (0.87-1.13) D-Dimer (0-234) ng/mlDDU ABG pO2 55.0 L (80.0-90.0) mm Hg ABG O2 Saturation 87.5 L (95.0-99.0) % ABG Base Excess -3.8 L (-2.0-3.0) mmol/L ABG Hemoglobin 11.6 L (14.0-18.0) gm/dl Oxyhemoglobin 85.6 L (95.0-99.0) % Potassium 5.3 H (3.6-5.0) mmol/L Chloride 94.4 L (98-107) mmol/L Carbon Dioxide (22-30) mmol/L BUN 46 H (9-20) mg/dL Creatinine 5.7 H (0.8-1.3) mg/dL Glucose 220 H (75-100) mg/dL POC Glucose (70-105) mg/dL Lactic Acid (0.7-2.0) mmol/L Ferritin (30.0-300.0) ng/mL AST 43 H (5-40) units/L Lactate Dehydrogenase (91-180) units/L Troponin T 0.376 H* (0.00-0.029) ng/mL C-Reactive Protein (0.00-1.30) mg/dL NT-Pro-B Natriuret Pep 86969 H (0-900) pg/mL Albumin 3.5 L (3.9-5) g/dL Triglycerides 202 H (2-149) mg/dL Cholesterol 252 H (50-199) mg/dL LDL Cholesterol Direct 165 H (50-130) mg/dL HDL Cholesterol 38 L (40-59) mg/dL Coronavirus (PCR) (Negative) 11/23/20 11/23/20 11/23/20 Range/Units 19:28 19:28 19:28 RBC (3.65-5.03) M/mm3 MCV (84-94) fl MCH (28-32) pg MCHC (32-34) % Lymph % (Auto) (13.4-35.0) % Lymph # (Auto) (1.2-5.4) K/mm3 Seg Neutrophils % (40.0-70.0) % PT 17.9 H (12.2-14.9) Sec. INR 1.49 H (0.87-1.13) D-Dimer 1524 H (0-234) ng/mlDDU ABG pO2 (80.0-90.0) mm Hg ABG O2 Saturation (95.0-99.0) % ABG Base Excess (-2.0-3.0) mmol/L ABG Hemoglobin (14.0-18.0) gm/dl Oxyhemoglobin (95.0-99.0) % Potassium (3.6-5.0) mmol/L Chloride (98-107) mmol/L Carbon Dioxide (22-30) mmol/L BUN (9-20) mg/dL Creatinine (0.8-1.3) mg/dL Glucose (75-100) mg/dL POC Glucose (70-105) mg/dL Lactic Acid 3.40 H* (0.7-2.0) mmol/L Ferritin (30.0-300.0) ng/mL AST (5-40) units/L Lactate Dehydrogenase (91-180) units/L Troponin T (0.00-0.029) ng/mL C-Reactive Protein (0.00-1.30) mg/dL NT-Pro-B Natriuret Pep (0-900) pg/mL Albumin (3.9-5) g/dL Triglycerides (2-149) mg/dL Cholesterol (50-199) mg/dL LDL Cholesterol Direct (50-130) mg/dL HDL Cholesterol (40-59) mg/dL Coronavirus (PCR) (Negative) 11/23/20 11/24/20 11/24/20 Range/Units 21:41 05:12 05:12 RBC (3.65-5.03) M/mm3 MCV (84-94) fl MCH (28-32) pg MCHC (32-34) % Lymph % (Auto) (13.4-35.0) % Lymph # (Auto) (1.2-5.4) K/mm3 Seg Neutrophils % (40.0-70.0) % PT (12.2-14.9) Sec. INR (0.87-1.13) D-Dimer (0-234) ng/mlDDU ABG pO2 (80.0-90.0) mm Hg ABG O2 Saturation (95.0-99.0) % ABG Base Excess (-2.0-3.0) mmol/L ABG Hemoglobin (14.0-18.0) gm/dl Oxyhemoglobin (95.0-99.0) % Potassium (3.6-5.0) mmol/L Chloride (98-107) mmol/L Carbon Dioxide (22-30) mmol/L BUN (9-20) mg/dL Creatinine (0.8-1.3) mg/dL Glucose (75-100) mg/dL POC Glucose (70-105) mg/dL Lactic Acid 2.30 H* 2.50 H* (0.7-2.0) mmol/L Ferritin (30.0-300.0) ng/mL AST (5-40) units/L Lactate Dehydrogenase (91-180) units/L Troponin T 0.330 H* (0.00-0.029) ng/mL C-Reactive Protein (0.00-1.30) mg/dL NT-Pro-B Natriuret Pep (0-900) pg/mL Albumin (3.9-5) g/dL Triglycerides (2-149) mg/dL Cholesterol (50-199) mg/dL LDL Cholesterol Direct (50-130) mg/dL HDL Cholesterol (40-59) mg/dL Coronavirus (PCR) (Negative) 11/24/20 11/24/20 11/24/20 Range/Units 05:12 05:12 05:12 RBC (3.65-5.03) M/mm3 MCV (84-94) fl MCH (28-32) pg MCHC (32-34) % Lymph % (Auto) (13.4-35.0) % Lymph # (Auto) (1.2-5.4) K/mm3 Seg Neutrophils % (40.0-70.0) % PT (12.2-14.9) Sec. INR (0.87-1.13) D-Dimer 2067.24 H (0-234) ng/mlDDU ABG pO2 (80.0-90.0) mm Hg ABG O2 Saturation (95.0-99.0) % ABG Base Excess (-2.0-3.0) mmol/L ABG Hemoglobin (14.0-18.0) gm/dl Oxyhemoglobin (95.0-99.0) % Potassium (3.6-5.0) mmol/L Chloride (98-107) mmol/L Carbon Dioxide (22-30) mmol/L BUN (9-20) mg/dL Creatinine (0.8-1.3) mg/dL Glucose 330 H (75-100) mg/dL POC Glucose (70-105) mg/dL Lactic Acid (0.7-2.0) mmol/L Ferritin 4172.0 H (30.0-300.0) ng/mL AST (5-40) units/L Lactate Dehydrogenase 370 H (91-180) units/L Troponin T (0.00-0.029) ng/mL C-Reactive Protein 34.70 H (0.00-1.30) mg/dL NT-Pro-B Natriuret Pep (0-900) pg/mL Albumin (3.9-5) g/dL Triglycerides (2-149) mg/dL Cholesterol (50-199) mg/dL LDL Cholesterol Direct (50-130) mg/dL HDL Cholesterol (40-59) mg/dL Coronavirus (PCR) (Negative) 11/24/20 11/24/20 11/24/20 Range/Units 08:22 08:41 10:32 RBC (3.65-5.03) M/mm3 MCV (84-94) fl MCH (28-32) pg MCHC (32-34) % Lymph % (Auto) (13.4-35.0) % Lymph # (Auto) (1.2-5.4) K/mm3 Seg Neutrophils % (40.0-70.0) % PT (12.2-14.9) Sec. INR (0.87-1.13) D-Dimer (0-234) ng/mlDDU ABG pO2 (80.0-90.0) mm Hg ABG O2 Saturation (95.0-99.0) % ABG Base Excess (-2.0-3.0) mmol/L ABG Hemoglobin (14.0-18.0) gm/dl Oxyhemoglobin (95.0-99.0) % Potassium (3.6-5.0) mmol/L Chloride (98-107) mmol/L Carbon Dioxide (22-30) mmol/L BUN (9-20) mg/dL Creatinine (0.8-1.3) mg/dL Glucose (75-100) mg/dL POC Glucose 321 H (70-105) mg/dL Lactic Acid 2.50 H* (0.7-2.0) mmol/L Ferritin (30.0-300.0) ng/mL AST (5-40) units/L Lactate Dehydrogenase (91-180) units/L Troponin T (0.00-0.029) ng/mL C-Reactive Protein (0.00-1.30) mg/dL NT-Pro-B Natriuret Pep (0-900) pg/mL Albumin (3.9-5) g/dL Triglycerides (2-149) mg/dL Cholesterol (50-199) mg/dL LDL Cholesterol Direct (50-130) mg/dL HDL Cholesterol (40-59) mg/dL Coronavirus (PCR) Positive A (Negative) 11/24/20 11/24/20 11/24/20 Range/Units 10:32 13:51 16:41 RBC (3.65-5.03) M/mm3 MCV (84-94) fl MCH (28-32) pg MCHC (32-34) % Lymph % (Auto) (13.4-35.0) % Lymph # (Auto) (1.2-5.4) K/mm3 Seg Neutrophils % (40.0-70.0) % PT (12.2-14.9) Sec. INR (0.87-1.13) D-Dimer (0-234) ng/mlDDU ABG pO2 (80.0-90.0) mm Hg ABG O2 Saturation (95.0-99.0) % ABG Base Excess (-2.0-3.0) mmol/L ABG Hemoglobin (14.0-18.0) gm/dl Oxyhemoglobin (95.0-99.0) % Potassium 6.0 H (3.6-5.0) mmol/L Chloride 95.4 L (98-107) mmol/L Carbon Dioxide 15 L D (22-30) mmol/L BUN 59 H (9-20) mg/dL Creatinine 7.1 H (0.8-1.3) mg/dL Glucose 386 H (75-100) mg/dL POC Glucose 328 H 363 H (70-105) mg/dL Lactic Acid (0.7-2.0) mmol/L Ferritin (30.0-300.0) ng/mL AST (5-40) units/L Lactate Dehydrogenase (91-180) units/L Troponin T (0.00-0.029) ng/mL C-Reactive Protein (0.00-1.30) mg/dL NT-Pro-B Natriuret Pep (0-900) pg/mL Albumin (3.9-5) g/dL Triglycerides (2-149) mg/dL Cholesterol (50-199) mg/dL LDL Cholesterol Direct (50-130) mg/dL HDL Cholesterol (40-59) mg/dL Coronavirus (PCR) (Negative) Assessment and Plan Cultures: Blood culture pending A/P: 80-year-old male past medical history ESRD on HD, diabetes, cholesterol admitted from dialysis to COVID-19 #Severe COVID-19 pneumonia: Patient presented with a week of symptoms, chest x- ray with diffuse bilateral infiltrates. No PE on CT #Acute hypoxemic respiratory failure: Likely secondary to COVID-19 infection. Currently on HFNC #ESRD on HD: Renally dose medications, not a candidate for remdesivir. #Diabetes: tight glycemic control for best outcomes. Recs: -Not a candidate for remdesivir -Continue Dexamethasone 6 mg IV/PO daily for 10 days -Obtain daily inflammatory markers - ferritin, Ddimer, CRP, LDH -Procalcitonin unreliable and end-stage renal disease as it is renally cleared -As he is afebrile without a white count, doubt acute bacterial superinfection. Will stop antibiotics -If fevers or white count increase, would restart antibiotics with ceftriaxone and azithromycin. High risk mortality due to severe COVID-19 infection and comorbidities. Thank you for the consult, we will continue to follow. MD [facility] ([facility] O: [phone] F: [phone]
[2020-11-24] MEDS ORDERED: SODIUM POLYSTYRENE 15 GM/60 ML ORAL LIQD PR ONE (17:23)
--- NOTE | 2020-11-24 17:50 | History and Physical Report ---
History of Present Illness Date of examination: 11/24/20 Date of admission: 11/24/20 00:37 Chief complaint: Passed out couple of hours ago History of present illness: 80-year-old male with a past medical history of end-stage renal disease on dialysis Friday, , Friday, diabetes, elevated cholesterol presents to the hospital with a syncopal episode during dialysis. Patient is oriented to the to self, knows he is at a hospital, but does not recall the year. He denies any pain. He is noticeably dyspneic with audible rhonchorous breath sounds. He does report a cough without known fever. 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 Meds include atorvastatin, Midorin, Cilostazol, Plavix, sucroferric Oxyhydroxide, gabapentin, Tums, Dialyvite, and insullin Lispro pt has likely has some mild dementia and unable to provide the missing information. Past History Past Medical History: diabetes, dialysis, ESRD, hyperlipidemia Past Surgical History: Other (Bilateral AKA) Social history: no significant social history Family history: no significant family history Medications and Allergies Allergies Allergy/AdvReac Type Severity Reaction Status Date / Time No Known Allergies Allergy Verified 11/24/20 05:46 Home Medications Medication Instructions Recorded Confirmed Last Taken Type AtorvaSTATin [Lipitor] 10 mg PO QHS 11/23/20 11/23/20 Unknown History Calcium Carbonate [Tums Ultra 940 mg PO TID 11/23/20 11/23/20 Unknown History Strength] Clopidogrel [Plavix] 75 mg PO QDAY 11/23/20 11/23/20 Unknown History Gabapentin [Neurontin] 100 mg PO QHS 11/23/20 11/23/20 Unknown History Lispro Insulin [HumaLOG] 0 unit SQ ACHS 11/23/20 11/23/20 Unknown History Sucroferric Oxyhydroxide(Nf) 500 mg PO TID 11/23/20 11/23/20 Unknown History [Velphoro (Nf)] cilostazoL [Pletal] 50 mg PO BID 11/23/20 11/23/20 Unknown History Apixaban [Eliquis] 5 mg PO BID 11/24/20 11/24/20 11/23/20 08:00 History Active Meds: Active Medications Acetaminophen (Acetaminophen 325 Mg Tab) 650 mg PO Q4H PRN PRN Reason: Pain MILD(1-3)/Fever >100.5/[place] Apixaban (Apixaban 2.5 Mg Tab) 2.5 mg PO BID [facility]; Protocol Last Admin: 11/24/20 12:04 Dose: 2.5 mg Documented by: Atorvastatin Calcium (Atorvastatin 10 Mg Tab) 10 mg PO QHS [facility] Calcium Carbonate/Glycine (Calcium Carbonate 500 Mg Tab Chew) 1,000 mg PO TIDWM [facility] Last Admin: 11/24/20 13:29 Dose: Not Given Documented by: Cilostazol (Cilostazol 100 Mg Tab) 50 mg PO BID [facility] Last Admin: 11/24/20 14:40 Dose: 50 mg Documented by: Clopidogrel Bisulfate (Clopidogrel 75 Mg Tab) 75 mg PO QDAY [facility] Last Admin: 11/24/20 12:04 Dose: 75 mg Documented by: Dexamethasone (Dexamethasone 4 Mg/Ml Vial) 6 mg IV Q24HR [facility] Last Admin: 11/24/20 10:41 Dose: 6 mg Documented by: Dextrose (Dextrose 50% In Water (25gm) 50 Ml Syringe) 50 ml IV Q30MIN PRN; Protocol PRN Reason: Hypoglycemia Gabapentin (Gabapentin 100 Mg Cap) 100 mg PO QHS [facility] Sodium Chloride (Nacl 0.9%) 100 mls @ 999 mls/hr IV [facility] PRN PRN Reason: Hypotension Insulin Human Lispro (Insulin Lispro 100 Unit/Ml Vial 3 Ml) 0 unit SUB-Q ACHS [facility]; Protocol Last Admin: 11/24/20 14:40 Dose: 6 unit Documented by: Magnesium Hydroxide (Magnesium Hydroxide (Mom) Oral Liqd Udc) 30 ml PO Q4H PRN PRN Reason: Constipation Miscellaneous Medication (Sucroferric Oxyhydroxide(Nf)) 500 mg PO TID [facility] Last Admin: 11/24/20 12:03 Dose: Not Given Documented by: Morphine Sulfate (Morphine 2 Mg/1 Ml Inj) 2 mg IV Q4H PRN PRN Reason: Pain, Moderate (4-6) Ondansetron HCl (Ondansetron 4 Mg/2 Ml Inj) 4 mg IV Q8H PRN PRN Reason: Nausea And Vomiting Sodium Chloride (Sodium Chloride 0.9% 10 Ml Flush Syringe) 10 ml IV BID [facility] Last Admin: 11/24/20 10:44 Dose: 10 ml Documented by: Sodium Chloride (Sodium Chloride 0.9% 10 Ml Flush Syringe) 10 ml IV PRN PRN PRN Reason: LINE FLUSH Exam - Constitutional Vitals: Temp Pulse Resp BP Pulse Ox 99.7 F H 115 H 16 128/74 97 11/24/20 11:22 11/24/20 14:45 11/24/20 14:45 11/24/20 14:45 11/24/20 16:01 HEART Score - HEART Score Troponin: Troponin T 0.330 ng/mL (0.00-0.029) H* 11/24/20 05:12 Results - Labs CBC & Chem 7: 11/23/20 19:28 11/24/20 10:32 Labs: Laboratory Last Values WBC 5.8 K/mm3 (4.5-11.0) 11/23/20 19:28 RBC 3.62 M/mm3 (3.65-5.03) L 11/23/20 19:28 Hgb 12.3 gm/dl (11.8-15.2) 11/23/20 19:28 Hct 35.5 % (35.5-45.6) 11/23/20 19:28 MCV 98 fl (84-94) H 11/23/20 19:28 MCH 34 pg (28-32) H 11/23/20 19:28 MCHC 35 % (32-34) H 11/23/20 19:28 RDW 13.9 % (13.2-15.2) 11/23/20 19:28 Plt Count 201 K/mm3 (140-440) 11/23/20 19:28 Lymph % (Auto) 6.8 % (13.4-35.0) L 11/23/20 19:28 [place] % (Auto) 4.2 % (0.0-7.3) 11/23/20 19:28 Eos % (Auto) 0.0 % (0.0-4.3) 11/23/20 19:28 Baso % (Auto) 0.3 % (0.0-1.8) 11/23/20 19:28 Lymph # (Auto) 0.4 K/mm3 (1.2-5.4) L 11/23/20 19:28 [place] # (Auto) 0.2 K/mm3 (0.0-0.8) 11/23/20 19:28 Eos # (Auto) 0.0 K/mm3 (0.0-0.4) 11/23/20 19: Baso # (Auto) 0.0 K/mm3 (0.0-0.1) 11/23/20 19: Seg Neutrophils % 88.7 % (40.0-70.0) H 11/23/20 19:28 Seg Neutrophils # 5.2 K/mm3 (1.8-7.7) 11/23/20 19: PT 17.9 Sec. (12.2-14.9) H 11/23/20 19: INR 1.49 (0.87-1.13) H 11/23/20 19: D-Dimer 2067.24 ng/mlDDU (0-234) H 11/24/20 05:12 ABG pH 7.382 pH Units (7.350-7.450) 11/23/20 18:55 ABG pCO2 35.6 mm Hg 11/23/20 18:55 ABG pO2 55.0 mm Hg (80.0-90.0) L 11/23/20 18:55 ABG HCO3 20.7 mmol/L (20.0-26.0) 11/23/20 18:55 ABG O2 Saturation 87.5 % (95.0-99.0) L 11/23/20 18:55 ABG O2 Content 14.0 (0.0-44) 11/23/20 18:55 ABG Base Excess -3.8 mmol/L (-2.0-3.0) L 11/23/20 18:55 ABG Hemoglobin 11.6 gm/dl (14.0-18.0) L 11/23/20 18:55 ABG Carboxyhemoglobin 1.4 % (0.0-5.0) 11/23/20 18:55 ABG Methemoglobin 0.8 % (0.0-1.5) 11/23/20 18:55 Oxyhemoglobin 85.6 % (95.0-99.0) L 11/23/20 18:55 FiO2 21 % 11/23/20 18:55 Sodium 140 mmol/L (137-145) 11/24/20 10:32 Potassium 6.0 mmol/L (3.6-5.0) H 11/24/20 10:32 Chloride 95.4 mmol/L (98-107) L 11/24/20 10:32 Carbon Dioxide 15 mmol/L (22-30) L D 11/24/20 10:32 Anion Gap 36 mmol/L 11/24/20 10:32 BUN 59 mg/dL (9-20) H 11/24/20 10:32 Creatinine 7.1 mg/dL (0.8-1.3) H 11/24/20 10:32 Estimated GFR 9 ml/min 11/24/20 10:32 BUN/Creatinine Ratio 8 % 11/24/20 10:32 Glucose 386 mg/dL (75-100) H 11/24/20 10:32 POC Glucose 363 mg/dL (70-105) H 11/24/20 16:41 Lactic Acid 2.50 mmol/L (0.7-2.0) H* 11/24/20 10:32 Calcium 8.7 mg/dL (8.4-10.2) 11/24/20 10:32 Ferritin 4172.0 ng/mL (30.0-300.0) H 11/24/20 05:12 Total Bilirubin 0.60 mg/dL (0.1-1.2) 11/23/20 19:28 AST 43 units/L (5-40) H 11/23/20 19:28 ALT 39 units/L (7-56) 11/23/20 19:28 Alkaline Phosphatase 70 units/L (35-129) 11/23/20 19:28 Lactate Dehydrogenase 370 units/L (91-180) H 11/24/20 05:12 Troponin T 0.330 ng/mL (0.00-0.029) H* 11/24/20 05:12 C-Reactive Protein 34.70 mg/dL (0.00-1.30) H 11/24/20 05:12 NT-Pro-B Natriuret Pep 70820 pg/mL (0-900) H 11/23/20 19:28 Total Protein 7.6 g/dL (6.3-8.2) 11/23/20 19:28 Albumin 3.5 g/dL (3.9-5) L 11/23/20 19:28 Albumin/Globulin Ratio 0.9 % 11/23/20 19:28 Triglycerides 202 mg/dL (2-149) H 11/23/20 19:28 Cholesterol 252 mg/dL (50-199) H 11/23/20 19:28 LDL Cholesterol Direct 165 mg/dL (50-130) H 11/23/20 19:28 HDL Cholesterol 38 mg/dL (40-59) L 11/23/20 19:28 Cholesterol/HDL Ratio 6.63 % 11/23/20 19:28 Procalcitonin 19.51 ng/mL (<0.15) 11/24/20 05:12 Coronavirus (PCR) Positive (Negative) A 11/24/20 08:22 Microbiology: Microbiology 11/23/20 19:31 Peripheral/Venous Blood Culture - Preliminary Culture in Progress 11/23/20 19:28 Peripheral/Venous Blood Culture - Preliminary Culture in Progress [place]/IV: IV Catheter Type [Left Forearm INT / Saline Lock ] IV Catheter Type [Left Hand] INT / Saline Lock
--- NOTE | 2020-11-24 18:19 | Progress Note ---
Assessment and Plan - Patient Problems (1) Acute respiratory failure with hypoxia Current Visit: Yes Status: Acute Plan to address problem: Oxygen supplements as necessary (2) Bilateral interstitial pneumonia Current Visit: Yes Status: Acute Plan to address problem: Treat as community-acquired pneumonia Rule out coronavirus (3) Suspected COVID-19 virus infection Current Visit: Yes Status: Acute Plan to address problem: Coronavirus positive Patient not hypoxic (4) Syncope Current Visit: Yes Status: Acute Plan to address problem: Syncope work-up (5) ESRD on dialysis Current Visit: Yes Status: Chronic Plan to address problem: Continue hemodialysis as per schedule (6) Hyperkalemia Current Visit: Yes Status: Acute Plan to address problem: Treated with calcium gluconate and sodium bicarbonate and also Kayexalate (7) Hypothyroidism (acquired) Current Visit: Yes Status: Chronic Plan to address problem: Continue Synthroid (8) Hyperlipidemia Current Visit: Yes Status: Chronic Qualifiers: Hyperlipidemia type: mixed hyperlipidemia Qualified Code(s): E78.2 - Mixed hyperlipidemia Plan to address problem: Continue statins (9) Insulin dependent diabetes mellitus Current Visit: Yes Status: Chronic Plan to address problem: Check hemoglobin A1c and continue coverage (10) DVT prophylaxis Current Visit: Yes Status: Acute Plan to address problem: On Lovenox and GI prophylaxis Subjective Date of service: 11/24/20 Principal diagnosis: Passed out few hours before admission Interval history: 80-year-old male with a past medical history of end-stage renal disease on dialysis Friday, , Friday, diabetes, elevated cholesterol presents to the hospital with a syncopal episode during dialysis. Patient is oriented to the to self, knows he is at a hospital, but does not recall the year. He denies any pain. He is noticeably dyspneic with audible rhonchorous breath sounds. He does report a cough without known fever. Patient has been having cough productive of mucoid sputum no body aches Patient's guitar repairer is Neal Rust Patient comes with his dialysis transportation sheet allergies and pmhx are not listed. Meds include atorvastatin, Midorin, Cilostazol, Plavix, sucroferric Oxyhydroxide, gabapentin, Tums, Dialyvite, and insullin Lispro Objective - Constitutional Vitals: Vital Signs - 12hr 11/24/20 11/24/20 11/24/20 06:35 08:30 09:00 Temperature Pulse Rate 118 H 117 H 117 H Respiratory 40 H 30 H 30 H Rate Blood Pressure Blood Pressure 128/94 103/67 [Right] O2 Sat by Pulse 100 100 100 Oximetry 11/24/20 11/24/20 11/24/20 09:35 11:22 12:02 Temperature 99.7 F H Pulse Rate 118 H 126 H Respiratory 30 H 30 H 13 Rate Blood Pressure Blood Pressure 104/59 [Right] O2 Sat by Pulse 100 100 95 Oximetry 11/24/20 11/24/20 11/24/20 12:24 12:41 12:51 Temperature Pulse Rate 119 H 124 H Respiratory 18 19 Rate Blood Pressure Blood Pressure [Right] O2 Sat by Pulse 100 100 100 Oximetry 11/24/20 11/24/20 11/24/20 13:01 13:11 13:21 Temperature Pulse Rate 125 H 120 H Respiratory 19 18 23 Rate Blood Pressure Blood Pressure [Right] O2 Sat by Pulse 96 96 96 Oximetry 11/24/20 11/24/20 11/24/20 13:31 13:41 13:51 Temperature Pulse Rate 115 H 120 H 113 H Respiratory 23 17 23 Rate Blood Pressure Blood Pressure [Right] O2 Sat by Pulse 97 97 98 Oximetry 11/24/20 11/24/20 11/24/20 14:01 14:11 14:21 Temperature Pulse Rate 120 H 116 H 115 H Respiratory 21 22 21 Rate Blood Pressure Blood Pressure [Right] O2 Sat by Pulse 98 99 99 Oximetry 11/24/20 11/24/20 11/24/20 14:31 14:40 14:45 Temperature Pulse Rate 104 H 108 H 115 H Respiratory 22 23 16 Rate Blood Pressure Blood Pressure 128/74 [Right] O2 Sat by Pulse 99 99 99 Oximetry 11/24/20 11/24/20 11/24/20 14:51 15:00 15:11 Temperature Pulse Rate 133 H 114 H 117 H Respiratory 16 29 H 23 Rate Blood Pressure 128/74 128/52 128/52 Blood Pressure [Right] O2 Sat by Pulse 99 98 98 Oximetry 11/24/20 11/24/20 11/24/20 15:21 15:31 15:40 Temperature Pulse Rate 113 H 113 H 123 H Respiratory 20 14 23 Rate Blood Pressure 128/52 128/52 128/52 Blood Pressure [Right] O2 Sat by Pulse 98 100 99 Oximetry 11/24/20 11/24/20 16:01 16:42 Temperature 96.9 F L Pulse Rate 87 Respiratory 20 Rate Blood Pressure 111/54 Blood Pressure [Right] O2 Sat by Pulse 97 98 Oximetry General appearance: Present: no acute distress, well-nourished - EENT Eyes: PERRL, EOM intact ENT: hearing intact, clear oral mucosa Ears: bilateral: normal - Neck Neck: supple, normal ROM - Respiratory Respiratory effort: normal Respiratory: bilateral: CTA - Breasts Breasts: normal - Cardiovascular Heart rate: 78 Rhythm: regular Heart Sounds: Present: S1 & S2. Absent: gallop, rub Extremities: pulses intact, No edema, normal color, Full ROM - Gastrointestinal General gastrointestinal: Present: soft, non-tender, non-distended, normal bowel sounds - Genitourinary Male genitourinary: normal - Integumentary Integumentary: clear, warm, dry - Musculoskeletal Musculoskeletal: 1, strength equal bilaterally - Neurologic Neurologic: moves all extremities - Psychiatric Psychiatric: memory intact, appropriate mood/affect, intact judgment & insight - Allied health notes Allied health notes reviewed: nursing, case management - Labs CBC & Chem 7: 11/23/20 19:28 11/24/20 10:32 Labs: Abnormal lab results 11/23/20 11/23/20 11/23/20 Range/Units 18:55 19:28 19:28 RBC 3.62 L (3.65-5.03) M/mm3 MCV 98 H (84-94) fl MCH 34 H (28-32) pg MCHC 35 H (32-34) % Lymph % (Auto) 6.8 L (13.4-35.0) % Lymph # (Auto) 0.4 L (1.2-5.4) K/mm3 Seg Neutrophils % 88.7 H (40.0-70.0) % PT (12.2-14.9) Sec. INR (0.87-1.13) D-Dimer (0-234) ng/mlDDU ABG pO2 55.0 L (80.0-90.0) mm Hg ABG O2 Saturation 87.5 L (95.0-99.0) % ABG Base Excess -3.8 L (-2.0-3.0) mmol/L ABG Hemoglobin 11.6 L (14.0-18.0) gm/dl Oxyhemoglobin 85.6 L (95.0-99.0) % Potassium 5.3 H (3.6-5.0) mmol/L Chloride 94.4 L (98-107) mmol/L Carbon Dioxide (22-30) mmol/L BUN 46 H (9-20) mg/dL Creatinine 5.7 H (0.8-1.3) mg/dL Glucose 220 H (75-100) mg/dL POC Glucose (70-105) mg/dL Lactic Acid (0.7-2.0) mmol/L Ferritin (30.0-300.0) ng/mL AST 43 H (5-40) units/L Lactate Dehydrogenase (91-180) units/L Troponin T 0.376 H* (0.00-0.029) ng/mL C-Reactive Protein (0.00-1.30) mg/dL NT-Pro-B Natriuret Pep 46921 H (0-900) pg/mL Albumin 3.5 L (3.9-5) g/dL Triglycerides 202 H (2-149) mg/dL Cholesterol 252 H (50-199) mg/dL LDL Cholesterol Direct 165 H (50-130) mg/dL HDL Cholesterol 38 L (40-59) mg/dL Coronavirus (PCR) (Negative) 11/23/20 11/23/20 11/23/20 Range/Units 19:28 19:28 19:28 RBC (3.65-5.03) M/mm3 MCV (84-94) fl MCH (28-32) pg MCHC (32-34) % Lymph % (Auto) (13.4-35.0) % Lymph # (Auto) (1.2-5.4) K/mm3 Seg Neutrophils % (40.0-70.0) % PT 17.9 H (12.2-14.9) Sec. INR 1.49 H (0.87-1.13) D-Dimer 1524 H (0-234) ng/mlDDU ABG pO2 (80.0-90.0) mm Hg ABG O2 Saturation (95.0-99.0) % ABG Base Excess (-2.0-3.0) mmol/L ABG Hemoglobin (14.0-18.0) gm/dl Oxyhemoglobin (95.0-99.0) % Potassium (3.6-5.0) mmol/L Chloride (98-107) mmol/L Carbon Dioxide (22-30) mmol/L BUN (9-20) mg/dL Creatinine (0.8-1.3) mg/dL Glucose (75-100) mg/dL POC Glucose (70-105) mg/dL Lactic Acid 3.40 H* (0.7-2.0) mmol/L Ferritin (30.0-300.0) ng/mL AST (5-40) units/L Lactate Dehydrogenase (91-180) units/L Troponin T (0.00-0.029) ng/mL C-Reactive Protein (0.00-1.30) mg/dL NT-Pro-B Natriuret Pep (0-900) pg/mL Albumin (3.9-5) g/dL Triglycerides (2-149) mg/dL Cholesterol (50-199) mg/dL LDL Cholesterol Direct (50-130) mg/dL HDL Cholesterol (40-59) mg/dL Coronavirus (PCR) (Negative) 11/23/20 11/24/20 11/24/20 Range/Units 21:41 05:12 05:12 RBC (3.65-5.03) M/mm3 MCV (84-94) fl MCH (28-32) pg MCHC (32-34) % Lymph % (Auto) (13.4-35.0) % Lymph # (Auto) (1.2-5.4) K/mm3 Seg Neutrophils % (40.0-70.0) % PT (12.2-14.9) Sec. INR (0.87-1.13) D-Dimer (0-234) ng/mlDDU ABG pO2 (80.0-90.0) mm Hg ABG O2 Saturation (95.0-99.0) % ABG Base Excess (-2.0-3.0) mmol/L ABG Hemoglobin (14.0-18.0) gm/dl Oxyhemoglobin (95.0-99.0) % Potassium (3.6-5.0) mmol/L Chloride (98-107) mmol/L Carbon Dioxide (22-30) mmol/L BUN (9-20) mg/dL Creatinine (0.8-1.3) mg/dL Glucose (75-100) mg/dL POC Glucose (70-105) mg/dL Lactic Acid 2.30 H* 2.50 H* (0.7-2.0) mmol/L Ferritin (30.0-300.0) ng/mL AST (5-40) units/L Lactate Dehydrogenase (91-180) units/L Troponin T 0.330 H* (0.00-0.029) ng/mL C-Reactive Protein (0.00-1.30) mg/dL NT-Pro-B Natriuret Pep (0-900) pg/mL Albumin (3.9-5) g/dL Triglycerides (2-149) mg/dL Cholesterol (50-199) mg/dL LDL Cholesterol Direct (50-130) mg/dL HDL Cholesterol (40-59) mg/dL Coronavirus (PCR) (Negative) 11/24/20 11/24/20 11/24/20 Range/Units 05:12 05:12 05:12 RBC (3.65-5.03) M/mm3 MCV (84-94) fl MCH (28-32) pg MCHC (32-34) % Lymph % (Auto) (13.4-35.0) % Lymph # (Auto) (1.2-5.4) K/mm3 Seg Neutrophils % (40.0-70.0) % PT (12.2-14.9) Sec. INR (0.87-1.13) D-Dimer 2067.24 H (0-234) ng/mlDDU ABG pO2 (80.0-90.0) mm Hg ABG O2 Saturation (95.0-99.0) % ABG Base Excess (-2.0-3.0) mmol/L ABG Hemoglobin (14.0-18.0) gm/dl Oxyhemoglobin (95.0-99.0) % Potassium (3.6-5.0) mmol/L Chloride (98-107) mmol/L Carbon Dioxide (22-30) mmol/L BUN (9-20) mg/dL Creatinine (0.8-1.3) mg/dL Glucose 330 H (75-100) mg/dL POC Glucose (70-105) mg/dL Lactic Acid (0.7-2.0) mmol/L Ferritin 4172.0 H (30.0-300.0) ng/mL AST (5-40) units/L Lactate Dehydrogenase 370 H (91-180) units/L Troponin T (0.00-0.029) ng/mL C-Reactive Protein 34.70 H (0.00-1.30) mg/dL NT-Pro-B Natriuret Pep (0-900) pg/mL Albumin (3.9-5) g/dL Triglycerides (2-149) mg/dL Cholesterol (50-199) mg/dL LDL Cholesterol Direct (50-130) mg/dL HDL Cholesterol (40-59) mg/dL Coronavirus (PCR) (Negative) 11/24/20 11/24/20 11/24/20 Range/Units 08:22 08:41 10:32 RBC (3.65-5.03) M/mm3 MCV (84-94) fl MCH (28-32) pg MCHC (32-34) % Lymph % (Auto) (13.4-35.0) % Lymph # (Auto) (1.2-5.4) K/mm3 Seg Neutrophils % (40.0-70.0) % PT (12.2-14.9) Sec. INR (0.87-1.13) D-Dimer (0-234) ng/mlDDU ABG pO2 (80.0-90.0) mm Hg ABG O2 Saturation (95.0-99.0) % ABG Base Excess (-2.0-3.0) mmol/L ABG Hemoglobin (14.0-18.0) gm/dl Oxyhemoglobin (95.0-99.0) % Potassium (3.6-5.0) mmol/L Chloride (98-107) mmol/L Carbon Dioxide (22-30) mmol/L BUN (9-20) mg/dL Creatinine (0.8-1.3) mg/dL Glucose (75-100) mg/dL POC Glucose 321 H (70-105) mg/dL Lactic Acid 2.50 H* (0.7-2.0) mmol/L Ferritin (30.0-300.0) ng/mL AST (5-40) units/L Lactate Dehydrogenase (91-180) units/L Troponin T (0.00-0.029) ng/mL C-Reactive Protein (0.00-1.30) mg/dL NT-Pro-B Natriuret Pep (0-900) pg/mL Albumin (3.9-5) g/dL Triglycerides (2-149) mg/dL Cholesterol (50-199) mg/dL LDL Cholesterol Direct (50-130) mg/dL HDL Cholesterol (40-59) mg/dL Coronavirus (PCR) Positive A (Negative) 11/24/20 11/24/20 11/24/20 Range/Units 10:32 13:51 16:41 RBC (3.65-5.03) M/mm3 MCV (84-94) fl MCH (28-32) pg MCHC (32-34) % Lymph % (Auto) (13.4-35.0) % Lymph # (Auto) (1.2-5.4) K/mm3 Seg Neutrophils % (40.0-70.0) % PT (12.2-14.9) Sec. INR (0.87-1.13) D-Dimer (0-234) ng/mlDDU ABG pO2 (80.0-90.0) mm Hg ABG O2 Saturation (95.0-99.0) % ABG Base Excess (-2.0-3.0) mmol/L ABG Hemoglobin (14.0-18.0) gm/dl Oxyhemoglobin (95.0-99.0) % Potassium 6.0 H (3.6-5.0) mmol/L Chloride 95.4 L (98-107) mmol/L Carbon Dioxide 15 L D (22-30) mmol/L BUN 59 H (9-20) mg/dL Creatinine 7.1 H (0.8-1.3) mg/dL Glucose 386 H (75-100) mg/dL POC Glucose 328 H 363 H (70-105) mg/dL Lactic Acid (0.7-2.0) mmol/L Ferritin (30.0-300.0) ng/mL AST (5-40) units/L Lactate Dehydrogenase (91-180) units/L Troponin T (0.00-0.029) ng/mL C-Reactive Protein (0.00-1.30) mg/dL NT-Pro-B Natriuret Pep (0-900) pg/mL Albumin (3.9-5) g/dL Triglycerides (2-149) mg/dL Cholesterol (50-199) mg/dL LDL Cholesterol Direct (50-130) mg/dL HDL Cholesterol (40-59) mg/dL Coronavirus (PCR) (Negative) Chest CT IMPRESSION: 1. No evidence of pulmonary embolism was 2. Evidence of bilateral pneumonia, worse on the left HEART Score - HEART Score Troponin: Troponin T 0.330 ng/mL (0.00-0.029) H* 11/24/20 05:12
[2020-11-24] MEDS ORDERED: SODIUM POLYSTYRENE 15 GM/60 ML ORAL LIQD PO ONE (18:37)
[2020-11-24] MEDS ORDERED: SODIUM BICARB 8.4% 50 MEQ/50 ML SYRINGE IV ONE (18:38)
[2020-11-24] MEDS ORDERED: METOPROLOL TARTRATE 5 MG/5 ML INJ IV ONE (20:38)
[2020-11-24] MEDS ORDERED: AZITHROMYCIN 500 MG in SODIUM CHLORIDE 0.9% 250ML 250 ML IV SCH (22:00)
[2020-11-24] MEDS ORDERED: cefTRIAXone/NS 2 GM/100 ML 2 GM/100 ML BAG IV SCH (22:00)
[2020-11-24 22:07] LABS: Hepatitis B Surface Antigen Non-Reactive (Negative); Hepatitis C Virus Antibody Non-Reactive (NonReactive)
[2020-11-25] MEDS: APIXABAN 2.5 MG TAB PO SCH ×3 (00:30→22:58)
[2020-11-25] MEDS: GABAPENTIN 100 MG CAP PO SCH ×2 (00:31→22:58)
[2020-11-25] MEDS: CILOSTAZOL 100 MG TAB PO SCH ×3 (00:41→22:58)
[2020-11-25] MEDS: INSULIN LISPRO 100 UNIT/ML VIAL 3 mL SUB-Q SCH ×6 (00:42→23:19)
[2020-11-25] MEDS ORDERED: SODIUM CHLORIDE 0.9% 250ML 250 ML IV ONE ×2 (01:59→02:57)
[2020-11-25 04:11] LABS: Hematocrit 33.4 % (35.5-45.6); Hemoglobin 10.9 gm/dl (11.8-15.2); Mean Corpuscular HGB Conc 33 % (32-34); Mean Corpuscular Volume 99 fl (84-94); Platelet Count 212 K/mm3 (140-440); Red Blood Count 3.36 M/mm3 (3.65-5.03)
[2020-11-25 04:25] LABS: Calcium 8.6 mg/dL (8.4-10.2)
[2020-11-25 05:03] LABS: INR 2.14 (0.87-1.13)
[2020-11-25 06:11] LABS: Total Cells Counted 100
[2020-11-25 06:12] LABS: Anisocytosis 1+; Band Neutrophils # (Manual) 0.6 K/mm3; Macrocytosis 1+; Platelet Estimate Consistent w Auto
[2020-11-25] MEDS: CALCIUM CARBONATE 500 MG TAB CHEW PO SCH ×4 (09:31→18:33)
[2020-11-25] MEDS: dexAMETHasone 4 MG/ML VIAL IV SCH (10:00)
--- NOTE | 2020-11-25 10:03 | Progress Note ---
Assessment and Plan ESRD on HD: Hyperkalemia: Covid 19 infection: Syncope: Metabolic acidosis: s/p HD yesterday, no HD indication today, eval for need daily Renally dose all meds Strict I/Os Santos Quesada MD [phone] Subjective Date of service: 11/25/20 Principal diagnosis: Passed out few hours before admission Interval history: Tolerated HD yesterday. Objective - Exam Narrative Exam: General: Awake Head: Atraumatic Eyes: normal appearance ENT: Moist mucous membranes Neck: Normal appearance, no midline tenderness Chest: Clear to auscultation bilaterally CV: Mild tachycardia regular rhythm, left arm dialysis access Abdomen: Soft, normal bowel sounds, nontender, nondistended, no rebound or guarding Back: Normal inspection Extremity: Bilateral AKA Neuro: AAOX2 Psych: Appropriate behavior Skin: No rash - Vital Signs Vital signs: Vital Signs - 12hr 11/24/20 11/24/20 11/24/20 22:15 22:56 23:02 Temperature 98.8 F Pulse Rate 113 H 156 H 112 H Respiratory 16 Rate Blood Pressure 124/42 105/69 105/59 Blood Pressure [Right] O2 Sat by Pulse Oximetry 11/25/20 11/25/20 11/25/20 01:49 02:49 03:45 Temperature 97.7 F Pulse Rate 134 H 136 H Respiratory 24 22 Rate Blood Pressure Blood Pressure 86/50 81/48 [Right] O2 Sat by Pulse 96 95 93 Oximetry 11/25/20 11/25/20 11/25/20 04:20 05:40 08:00 Temperature 98.5 F Pulse Rate 136 H 59 L Respiratory 20 16 16 Rate Blood Pressure 92/43 Blood Pressure 95/50 [Right] O2 Sat by Pulse 96 98 Oximetry - Lab 11/25/20 03:39 11/25/20 03:39 Most recent lab results ABG pH 7.382 pH Units (7.350-7.450) 11/23/20 18:55 ABG pCO2 35.6 mm Hg 11/23/20 18:55 ABG pO2 55.0 mm Hg (80.0-90.0) L 11/23/20 18:55 ABG HCO3 20.7 mmol/L (20.0-26.0) 11/23/20 18:55 ABG O2 Saturation 87.5 % (95.0-99.0) L 11/23/20 18:55 Calcium 8.6 mg/dL (8.4-10.2) 11/25/20 03:39 Medications & Allergies - Medications Allergies/Adverse Reactions: Allergies No Known Allergies Allergy (Verified 11/24/20 05:46) Home Medications: Home Medications Medication Instructions Recorded Confirmed Last Taken Type AtorvaSTATin [Lipitor] 10 mg PO QHS 11/23/20 11/23/20 Unknown History Calcium Carbonate [Tums Ultra 940 mg PO TID 11/23/20 11/23/20 Unknown History Strength] Clopidogrel [Plavix] 75 mg PO QDAY 11/23/20 11/23/20 Unknown History Gabapentin [Neurontin] 100 mg PO QHS 11/23/20 11/23/20 Unknown History Lispro Insulin [HumaLOG] 0 unit SQ ACHS 11/23/20 11/23/20 Unknown History Sucroferric Oxyhydroxide(Nf) 500 mg PO TID 11/23/20 11/23/20 Unknown History [Velphoro (Nf)] cilostazoL [Pletal] 50 mg PO BID 11/23/20 11/23/20 Unknown History Apixaban [Eliquis] 5 mg PO BID 11/24/20 11/24/20 11/23/20 08:00 History Active Medications: Generic Name Dose Route Start Last Admin Trade Name Freq PRN Reason Stop Dose Admin Acetaminophen 650 mg 11/24/20 00:58 Acetaminophen 325 Mg Tab PO Q4H PRN Pain MILD(1-3)/Fever >100.5/CARDENAS Apixaban 2.5 mg 11/24/20 10:00 11/25/20 00:30 Apixaban 2.5 Mg Tab PO 2.5 mg BID ESTRELLA Administration Protocol Atorvastatin Calcium 10 mg 11/24/20 22:00 11/25/20 00:30 Atorvastatin 10 Mg Tab PO 10 mg QHS ESTRELLA Administration Calcium Carbonate/Glycine 1,000 mg 11/24/20 08:00 11/25/20 09:31 Calcium Carbonate 500 Mg Tab Chew PO Not Given TIDWM ESTRELLA Cilostazol 50 mg 11/24/20 10:00 11/25/20 00:41 Cilostazol 100 Mg Tab PO 50 mg BID ESTRELLA Administration Clopidogrel Bisulfate 75 mg 11/24/20 10:00 11/24/20 12:04 Clopidogrel 75 Mg Tab PO 75 mg QDAY ESTRELLA Administration Dexamethasone 6 mg 11/24/20 10:00 11/25/20 10:00 Dexamethasone 4 Mg/Ml Vial IV 6 mg Q24HR ESTRELLA Administration Dextrose 50 ml 11/24/20 00:58 Dextrose 50% In Water (25gm) 50 Ml Syringe IV Q30MIN PRN Hypoglycemia Protocol Gabapentin 100 mg 11/24/20 22:00 11/25/20 00:31 Gabapentin 100 Mg Cap PO 100 mg QHS ESTRELLA Administration Sodium Chloride 100 mls @ 999 mls/hr 11/24/20 10:08 Nacl 0.9% IV DILLON PRN Hypotension Insulin Human Lispro 0 unit 11/24/20 07:30 11/25/20 09:31 Insulin Lispro 100 Unit/Ml Vial 3 Ml SUB-Q Not Given ACHS [facility] Protocol Magnesium Hydroxide 30 ml 11/24/20 00:58 Magnesium Hydroxide (Mom) Oral Liqd Udc PO Q4H PRN Constipation Miscellaneous Medication 500 mg 11/24/20 08:00 11/24/20 12:03 Sucroferric Oxyhydroxide(Nf) PO Not Given TID [facility] Morphine Sulfate 2 mg 11/24/20 00:58 Morphine 2 Mg/1 Ml Inj IV Q4H PRN Pain, Moderate (4-6) Ondansetron HCl 4 mg 11/24/20 00:58 Ondansetron 4 Mg/2 Ml Inj IV Q8H PRN Nausea And Vomiting Sodium Chloride 10 ml 11/24/20 10:00 11/25/20 10:00 Sodium Chloride 0.9% 10 Ml Flush Syringe IV 10 ml BID ESTRELLA Administration Sodium Chloride 10 ml 11/24/20 00:58 Sodium Chloride 0.9% 10 Ml Flush Syringe IV PRN PRN LINE FLUSH
[2020-11-25] MEDS: CLOPIDOGREL 75 MG TAB PO SCH (10:08)
--- NOTE | 2020-11-25 20:11 | Progress Note ---
Assessment and Plan - Patient Problems (1) Acute respiratory failure with hypoxia Current Visit: Yes Status: Acute Plan to address problem: Oxygen supplements as necessary Patient on 10 L nasal cannula oxygen (2) Bilateral interstitial pneumonia Current Visit: Yes Status: Acute Plan to address problem: IV antibiotics stopped Continued dexamethasone (3) Suspected COVID-19 virus infection Current Visit: Yes Status: Acute Plan to address problem: Coronavirus positive Patient is hypoxic Patient on IV dexamethasone Patient not a candidate for remdesivir because of his kidney function (4) ESRD on dialysis Current Visit: Yes Status: Chronic Plan to address problem: Continue hemodialysis as per schedule (5) Hyperkalemia Current Visit: Yes Status: Acute Plan to address problem: Treated with calcium gluconate and sodium bicarbonate and also Kayexalate Potassium improved from 6.0-4.1 (6) Hypothyroidism (acquired) Current Visit: Yes Status: Chronic Plan to address problem: Continue Synthroid (7) Hyperlipidemia Current Visit: Yes Status: Chronic Qualifiers: Hyperlipidemia type: mixed hyperlipidemia Qualified Code(s): E78.2 - Mixed hyperlipidemia Plan to address problem: Continue statins (8) Insulin dependent diabetes mellitus Current Visit: Yes Status: Chronic Plan to address problem: Check hemoglobin A1c and continue coverage (9) DVT prophylaxis Current Visit: Yes Status: Acute Plan to address problem: On Lovenox and GI prophylaxis Subjective Date of service: 11/25/20 Principal diagnosis: Passed out few hours before admission Interval history: 80-year-old male with a past medical history of end-stage renal disease on dialysis Friday, , Friday, diabetes, elevated cholesterol presents to the hospital with a syncopal episode during dialysis. Patient is oriented to the to self, knows he is at a hospital, but does not recall the year. He denies any pain. He is noticeably dyspneic with audible rhonchorous breath sounds. He does report a cough without known fever. 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 Meds include atorvastatin, Midorin, Cilostazol, Plavix, sucroferric Oxyhydroxide, gabapentin, Tums, Dialyvite, and insullin Lispro Day #2 11/25/2020 Patient is on 10 L nasal cannula oxygen In slight respiratory distress + Objective - Constitutional Vitals: Vital Signs - 12hr 11/25/20 11/25/20 10:00 11:19 Temperature 97.4 F L Pulse Rate 63 Respiratory 20 Rate Blood Pressure 106/45 O2 Sat by Pulse 96 89 Oximetry General appearance: Present: mild distress, well-nourished - EENT Eyes: PERRL, EOM intact ENT: hearing intact, clear oral mucosa Ears: bilateral: normal - Neck Neck: supple, normal ROM - Respiratory Respiratory effort: normal Respiratory: bilateral: CTA - Breasts Breasts: normal - Cardiovascular Heart rate: 78 Rhythm: regular Heart Sounds: Present: S1 & S2. Absent: gallop, rub Extremities: pulses intact, No edema, normal color, Full ROM - Gastrointestinal General gastrointestinal: Present: soft, non-tender, non-distended, normal bowel sounds - Genitourinary Male genitourinary: normal - Integumentary Integumentary: clear, warm, dry - Musculoskeletal Musculoskeletal: 1, strength equal bilaterally - Neurologic Neurologic: moves all extremities - Psychiatric Psychiatric: memory intact, appropriate mood/affect, intact judgment & insight - Labs CBC & Chem 7: 11/25/20 03:39 11/25/20 03:39 Labs: Abnormal lab results 11/25/20 11/25/20 11/25/20 Range/Units 00:28 03:39 03:39 WBC 15.2 H (4.5-11.0) K/mm3 RBC 3.36 L (3.65-5.03) M/mm3 Hgb 10.9 L (11.8-15.2) gm/dl Hct 33.4 L (35.5-45.6) % MCV 99 H (84-94) fl MCH 33 H (28-32) pg Seg Neuts % (Manual) 92.0 H (40.0-70.0) % Lymphocytes % (Manual) 2.0 L (13.4-35.0) % Seg Neutrophils # Man 14.0 H (1.8-7.7) K/mm3 Lymphocytes # (Manual) 0.3 L (1.2-5.4) K/mm3 PT 23.9 H (12.2-14.9) Sec. INR 2.14 H (0.87-1.13) BUN (9-20) mg/dL Creatinine (0.8-1.3) mg/dL Glucose (75-100) mg/dL POC Glucose 213 H (70-105) mg/dL 11/25/20 11/25/20 11/25/20 Range/Units 03:39 07:47 11:18 WBC (4.5-11.0) K/mm3 RBC (3.65-5.03) M/mm3 Hgb (11.8-15.2) gm/dl Hct (35.5-45.6) % MCV (84-94) fl MCH (28-32) pg Seg Neuts % (Manual) (40.0-70.0) % Lymphocytes % (Manual) (13.4-35.0) % Seg Neutrophils # Man (1.8-7.7) K/mm3 Lymphocytes # (Manual) (1.2-5.4) K/mm3 PT (12.2-14.9) Sec. INR (0.87-1.13) BUN 33 H (9-20) mg/dL Creatinine 4.2 H (0.8-1.3) mg/dL Glucose 229 H (75-100) mg/dL POC Glucose 251 H 259 H (70-105) mg/dL 11/25/20 Range/Units 16:16 WBC (4.5-11.0) K/mm3 RBC (3.65-5.03) M/mm3 Hgb (11.8-15.2) gm/dl Hct (35.5-45.6) % MCV (84-94) fl MCH (28-32) pg Seg Neuts % (Manual) (40.0-70.0) % Lymphocytes % (Manual) (13.4-35.0) % Seg Neutrophils # Man (1.8-7.7) K/mm3 Lymphocytes # (Manual) (1.2-5.4) K/mm3 PT (12.2-14.9) Sec. INR (0.87-1.13) BUN (9-20) mg/dL Creatinine (0.8-1.3) mg/dL Glucose (75-100) mg/dL POC Glucose 208 H (70-105) mg/dL HEART Score - HEART Score Troponin: Troponin T 0.330 ng/mL (0.00-0.029) H* 11/24/20 05:12
[2020-11-26 06:43] LABS: Calcium 9.4 mg/dL (8.4-10.2)
[2020-11-26] MEDS: INSULIN LISPRO 100 UNIT/ML VIAL 3 mL SUB-Q SCH ×4 (11:25→22:11)
[2020-11-26] MEDS: CILOSTAZOL 100 MG TAB PO SCH ×2 (11:32→21:22)
[2020-11-26] MEDS: APIXABAN 2.5 MG TAB PO SCH ×2 (11:33→21:22)
[2020-11-26] MEDS: CALCIUM CARBONATE 500 MG TAB CHEW PO SCH ×3 (11:33→18:22)
[2020-11-26] MEDS: dexAMETHasone 4 MG/ML VIAL IV SCH (11:33)
[2020-11-26] MEDS: CLOPIDOGREL 75 MG TAB PO SCH (11:34)
--- NOTE | 2020-11-26 11:57 | Progress Note ---
Assessment and Plan ESRD on HD: Hyperkalemia: Covid 19 infection: Syncope: Metabolic acidosis: s/p HD friday, no HD indication today, HD tomorrow. eval for need daily Renally dose all meds Strict I/Os Santos Quesada MD [phone] Subjective Date of service: 11/26/20 Principal diagnosis: Passed out few hours before admission Interval history: Tolerated HD Friday. Objective - Exam Narrative Exam: General: Awake Head: Atraumatic Eyes: normal appearance ENT: Moist mucous membranes Neck: Normal appearance, no midline tenderness Chest: Clear to auscultation bilaterally CV: Mild tachycardia regular rhythm, left arm dialysis access Abdomen: Soft, normal bowel sounds, nontender, nondistended, no rebound or guarding Back: Normal inspection Extremity: Bilateral AKA Neuro: AAOX2 Psych: Appropriate behavior Skin: No rash - Vital Signs Vital signs: Vital Signs - 12hr 11/26/20 11/26/20 11/26/20 04:37 09:12 10:59 Temperature 98.2 F 98.2 F Pulse Rate 65 120 H Respiratory 20 18 Rate Blood Pressure 123/62 115/62 O2 Sat by Pulse 89 Oximetry - Lab 11/25/20 03:39 11/26/20 04:30 Most recent lab results ABG pH 7.382 pH Units (7.350-7.450) 11/23/20 18:55 ABG pCO2 35.6 mm Hg 11/23/20 18:55 ABG pO2 55.0 mm Hg (80.0-90.0) L 11/23/20 18:55 ABG HCO3 20.7 mmol/L (20.0-26.0) 11/23/20 18:55 ABG O2 Saturation 87.5 % (95.0-99.0) L 11/23/20 18:55 Calcium 9.4 mg/dL (8.4-10.2) 11/26/20 04:30 Medications & Allergies - Medications Allergies/Adverse Reactions: Allergies No Known Allergies Allergy (Verified 11/24/20 05:46) Home Medications: Home Medications Medication Instructions Recorded Confirmed Last Taken Type AtorvaSTATin [Lipitor] 10 mg PO QHS 11/23/20 11/23/20 Unknown History Calcium Carbonate [Tums Ultra 940 mg PO TID 11/23/20 11/23/20 Unknown History Strength] Clopidogrel [Plavix] 75 mg PO QDAY 11/23/20 11/23/20 Unknown History Gabapentin [Neurontin] 100 mg PO QHS 11/23/20 11/23/20 Unknown History Lispro Insulin [HumaLOG] 0 unit SQ ACHS 11/23/20 11/23/20 Unknown History Sucroferric Oxyhydroxide(Nf) 500 mg PO TID 11/23/20 11/23/20 Unknown History [Velphoro (Nf)] cilostazoL [Pletal] 50 mg PO BID 11/23/20 11/23/20 Unknown History Apixaban [Eliquis] 5 mg PO BID 11/24/20 11/24/20 11/23/20 08:00 History Active Medications: Generic Name Dose Route Start Last Admin Trade Name Freq PRN Reason Stop Dose Admin Acetaminophen 650 mg 11/24/20 00:58 Acetaminophen 325 Mg Tab PO Q4H PRN Pain MILD(1-3)/Fever >100.5/CARDENAS Apixaban 2.5 mg 11/24/20 10:00 11/26/20 11:33 Apixaban 2.5 Mg Tab PO 2.5 mg BID ESTRELLA Administration Protocol Atorvastatin Calcium 10 mg 11/24/20 22:00 11/25/20 22:58 Atorvastatin 10 Mg Tab PO 10 mg QHS ESTRELLA Administration Calcium Carbonate/Glycine 1,000 mg 11/24/20 08:00 11/26/20 11:33 Calcium Carbonate 500 Mg Tab Chew PO 1,000 mg TIDWM ESTRELLA Administration Cilostazol 50 mg 11/24/20 10:00 11/26/20 11:32 Cilostazol 100 Mg Tab PO 50 mg BID ESTRELLA Administration Clopidogrel Bisulfate 75 mg 11/24/20 10:00 11/26/20 11:34 Clopidogrel 75 Mg Tab PO 75 mg QDAY ESTRELLA Administration Dexamethasone 6 mg 11/24/20 10:00 11/26/20 11:33 Dexamethasone 4 Mg/Ml Vial IV 12/03/20 10:01 6 mg Q24HR ESTRELLA Administration Dextrose 50 ml 11/24/20 00:58 Dextrose 50% In Water (25gm) 50 Ml Syringe IV Q30MIN PRN Hypoglycemia Protocol Gabapentin 100 mg 11/24/20 22:00 11/25/20 22:58 Gabapentin 100 Mg Cap PO 100 mg QHS ESTRELAL Administration Sodium Chloride 100 mls @ 999 mls/hr 11/24/20 10:08 Nacl 0.9% IV DILLON PRN Hypotension Insulin Human Lispro 0 unit 11/24/20 07:30 11/26/20 11:28 Insulin Lispro 100 Unit/Ml Vial 3 Ml SUB-Q 8 unit ACHS ESTRELLA Administration Protocol Magnesium Hydroxide 30 ml 11/24/20 00:58 Magnesium Hydroxide (Mom) Oral Liqd Udc PO Q4H PRN Constipation Miscellaneous Medication 500 mg 11/24/20 08:00 11/24/20 12:03 Sucroferric Oxyhydroxide(Nf) PO Not Given TID [facility] Morphine Sulfate 2 mg 11/24/20 00:58 Morphine 2 Mg/1 Ml Inj IV Q4H PRN Pain, Moderate (4-6) Ondansetron HCl 4 mg 11/24/20 00:58 Ondansetron 4 Mg/2 Ml Inj IV Q8H PRN Nausea And Vomiting Sodium Chloride 10 ml 11/24/20 10:00 11/26/20 11:34 Sodium Chloride 0.9% 10 Ml Flush Syringe IV 10 ml BID ESTRELLA Administration Sodium Chloride 10 ml 11/24/20 00:58 Sodium Chloride 0.9% 10 Ml Flush Syringe IV PRN PRN LINE FLUSH
[2020-11-26] MEDS ORDERED: DIGOXIN 0.5 MG/2 ML INJ IV STA (14:08)
[2020-11-26] MEDS ORDERED: DIGOXIN 0.5 MG/2 ML INJ IV ONE (14:13)
[2020-11-26] MEDS ORDERED: SODIUM CHLORIDE 0.9% 100 ML IV PRN (14:43)
[2020-11-26] MEDS ORDERED: METOPROLOL TARTRATE 25 MG TAB PO SCH (15:00)
[2020-11-26] MEDS: METOPROLOL TARTRATE 25 MG TAB PO SCH (18:21)
--- NOTE | 2020-11-26 18:34 | Consultation ---
History of Present Illness Consult date: 11/26/20 Consult reason: tachycardia History of present illness: The patient is an 80-year-old man with end-stage renal disease on hemodialysis, who was brought to the hospital after he reportedly had syncope during dialysis, associated with a low blood pressure. On presentation to the hospital, there was a maximum temperature of 99.7, leukocytosis of 15,000, and patient was ultimately diagnosed with a positive COVID-19 infection. Cardiology consultation is requested for the finding of a persistent tachycardia. My review of his telemetry strips and ECGs show that this is a persistent atrial fibrillation with ventricular rates that have ranged from 110s to 150s. The patient is comfortable in no acute distress, but unable to provide a history. His previous cardiac evaluation and management was reportedly at [facility]. My review of his medications show that he is on Eliquis, suggesting a chronicity to his atrial fibrillation. He is not on any significant AV lee ann blocking therapy at this time. Additionally, he likely has a history of coronary artery disease and peripheral arterial disease, on his chest x-ray there is evidence of a previous sternotomy and possible coronary artery bypass. His medication profile includes clopidogrel and cilostazol. EKG on his initial presentation was atrial fibrillation with a ventricular rate of 110s, incomplete left bundle branch, nonspecific ST and T wave changes. Past History Past Medical History: atrial fib, CAD, diabetes, dialysis, ESRD, hyperlipidemia Past Surgical History: Other (Bilateral AKA) Social history: no significant social history Family history: no significant family history Medications and Allergies Allergies Allergy/AdvReac Type Severity Reaction Status Date / Time No Known Allergies Allergy Verified 11/24/20 05:46 Home Medications Medication Instructions Recorded Confirmed Last Taken Type AtorvaSTATin [Lipitor] 10 mg PO QHS 11/23/20 11/23/20 Unknown History Calcium Carbonate [Tums Ultra 940 mg PO TID 11/23/20 11/23/20 Unknown History Strength] Clopidogrel [Plavix] 75 mg PO QDAY 11/23/20 11/23/20 Unknown History Gabapentin [Neurontin] 100 mg PO QHS 11/23/20 11/23/20 Unknown History Lispro Insulin [HumaLOG] 0 unit SQ ACHS 11/23/20 11/23/20 Unknown History Sucroferric Oxyhydroxide(Nf) 500 mg PO TID 11/23/20 11/23/20 Unknown History [Velphoro (Nf)] cilostazoL [Pletal] 50 mg PO BID 11/23/20 11/23/20 Unknown History Apixaban [Eliquis] 5 mg PO BID 11/24/20 11/24/20 11/23/20 08:00 History Active Meds: Active Medications Acetaminophen (Acetaminophen 325 Mg Tab) 650 mg PO Q4H PRN PRN Reason: Pain MILD(1-3)/Fever >100.5/CARDENAS Last Admin: 11/26/20 13:23 Dose: 650 mg Documented by: Apixaban (Apixaban 2.5 Mg Tab) 2.5 mg PO BID [facility]; Protocol Last Admin: 11/26/20 11:33 Dose: 2.5 mg Documented by: Atorvastatin Calcium (Atorvastatin 10 Mg Tab) 10 mg PO QHS [facility] Last Admin: 11/25/20 22:58 Dose: 10 mg Documented by: Calcium Carbonate/Glycine (Calcium Carbonate 500 Mg Tab Chew) 1,000 mg PO TIDWM [facility] Last Admin: 11/26/20 18:22 Dose: 1,000 mg Documented by: Cilostazol (Cilostazol 100 Mg Tab) 50 mg PO BID [facility] Last Admin: 11/26/20 11:32 Dose: 50 mg Documented by: Clopidogrel Bisulfate (Clopidogrel 75 Mg Tab) 75 mg PO QDAY [facility] Last Admin: 11/26/20 11:34 Dose: 75 mg Documented by: Dexamethasone (Dexamethasone 4 Mg/Ml Vial) 6 mg IV Q24HR [facility] Stop: 12/03/20 10:01 Last Admin: 11/26/20 11:33 Dose: 6 mg Documented by: Dextrose (Dextrose 50% In Water (25gm) 50 Ml Syringe) 50 ml IV Q30MIN PRN; Protocol PRN Reason: Hypoglycemia Digoxin (Digoxin 0.125 Mg Tab) 0.125 mg PO Q48HR [facility] Gabapentin (Gabapentin 100 Mg Cap) 100 mg PO QHS [facility] Last Admin: 11/25/20 22:58 Dose: 100 mg Documented by: Sodium Chloride (Nacl 0.9%) 100 mls @ 999 mls/hr IV DILLON PRN PRN Reason: Hypotension Insulin Human Lispro (Insulin Lispro 100 Unit/Ml Vial 3 Ml) 0 unit SUB-Q ACHS [facility]; Protocol Last Admin: 11/26/20 18:22 Dose: 8 unit Documented by: Magnesium Hydroxide (Magnesium Hydroxide (Mom) Oral Liqd Udc) 30 ml PO Q4H PRN PRN Reason: Constipation Metoprolol Tartrate (Metoprolol Tartrate 25 Mg Tab) 25 mg PO Q6HR [facility] Last Admin: 11/26/20 18:21 Dose: 25 mg Documented by: Miscellaneous Medication (Sucroferric Oxyhydroxide(Nf)) 500 mg PO TID [facility] Last Admin: 11/24/20 12:03 Dose: Not Given Documented by: Morphine Sulfate (Morphine 2 Mg/1 Ml Inj) 2 mg IV Q4H PRN PRN Reason: Pain, Moderate (4-6) Ondansetron HCl (Ondansetron 4 Mg/2 Ml Inj) 4 mg IV Q8H PRN PRN Reason: Nausea And Vomiting Sodium Chloride (Sodium Chloride 0.9% 10 Ml Flush Syringe) 10 ml IV BID [facility] Last Admin: 11/26/20 11:34 Dose: 10 ml Documented by: Sodium Chloride (Sodium Chloride 0.9% 10 Ml Flush Syringe) 10 ml IV PRN PRN PRN Reason: LINE FLUSH Review of Systems ROS unobtainable: due to mental status Physical Examination Vital Signs Temp Pulse Resp BP Pulse Ox 98.6 F 70 18 122/61 90 11/23/20 18:27 11/23/20 18:27 11/23/20 18:27 11/23/20 18:27 11/23/20 18:27 Narrative exam: Full physical exam is deferred due to the patient's positive COVID-19 infection status. General appearance: no acute distress Results 11/25/20 03:39 11/26/20 04:30 Comprehensive Metabolic Panel 11/26/20 Range/Units 04:30 Sodium 145 (137-145) mmol/L Potassium 4.6 (3.6-5.0) mmol/L Chloride 100.9 (98-107) mmol/L Carbon Dioxide 26 (22-30) mmol/L BUN 58 H (9-20) mg/dL Creatinine 6.2 H (0.8-1.3) mg/dL Glucose 358 H (75-100) mg/dL Calcium 9.4 (8.4-10.2) mg/dL EKG interpretations - Telemetry EKG Rhythm: Atrial Fibrillation Assessment and Plan - Patient Problems (1) Atrial fibrillation Current Visit: Yes Status: Acute Plan to address problem: Patient presents to the hospital with COVID-19 infection, found to have atrial fibrillation. The atrial fibrillation appears likely chronic, patient presented on Eliquis therapy. We will continue Eliquis for anticoagulation, and add metoprolol and digitalis for atrial fibrillation rate control. We will request records from [facility] for further review of the patient's previous cardiac history and management. Otherwise, conservative cardiac management.
--- NOTE | 2020-11-26 20:25 | Progress Note ---
Assessment and Plan - Patient Problems (1) Acute respiratory failure with hypoxia Current Visit: Yes Status: Acute Plan to address problem: Oxygen supplements as necessary Patient on 10 L nasal cannula oxygen (2) Bilateral interstitial pneumonia Current Visit: Yes Status: Acute Plan to address problem: IV antibiotics stopped Continued dexamethasone (3) Suspected COVID-19 virus infection Current Visit: Yes Status: Acute Plan to address problem: Coronavirus positive Patient is hypoxic Patient on IV dexamethasone Patient not a candidate for remdesivir because of his kidney function (4) ESRD on dialysis Current Visit: Yes Status: Chronic Plan to address problem: Continue hemodialysis as per schedule (5) Hyperkalemia Current Visit: Yes Status: Acute Plan to address problem: Treated with calcium gluconate and sodium bicarbonate and also Kayexalate Potassium improved from 6.0-4.1 (6) Hypothyroidism (acquired) Current Visit: Yes Status: Chronic Plan to address problem: Continue Synthroid (7) Hyperlipidemia Current Visit: Yes Status: Chronic Qualifiers: Hyperlipidemia type: mixed hyperlipidemia Qualified Code(s): E78.2 - Mixed hyperlipidemia Plan to address problem: Continue statins (8) Insulin dependent diabetes mellitus Current Visit: Yes Status: Chronic Plan to address problem: Check hemoglobin A1c and continue coverage (9) DVT prophylaxis Current Visit: Yes Status: Acute Plan to address problem: On Lovenox and GI prophylaxis Subjective Date of service: 11/26/20 Principal diagnosis: Passed out few hours before admission Interval history: 80-year-old male with a past medical history of end-stage renal disease on dialysis Friday, , Friday, diabetes, elevated cholesterol presents to the hospital with a syncopal episode during dialysis. Patient is oriented to the to self, knows he is at a hospital, but does not recall the year. He denies any pain. He is noticeably dyspneic with audible rhonchorous breath sounds. He does report a cough without known fever. 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 Meds include atorvastatin, Midorin, Cilostazol, Plavix, sucroferric Oxyhydroxide, gabapentin, Tums, Dialyvite, and insullin Lispro Day #2 11/25/2020 Patient is on 10 L nasal cannula oxygen In slight respiratory distress Day # 3 11/26/20 On 10 liters HFNC In slight respiratory distress + Objective - Constitutional Vitals: Vital Signs - 12hr 11/26/20 11/26/20 11/26/20 09:12 10:59 13:19 Temperature 98.2 F Pulse Rate 120 H 60 Respiratory 18 Rate Blood Pressure 115/62 113/64 O2 Sat by Pulse 98 Oximetry 11/26/20 11/26/20 11/26/20 13:20 15:00 16:42 Temperature 100.3 F H 98.1 F Pulse Rate 150 H 87 Respiratory 20 18 Rate Blood Pressure 115/60 107/60 O2 Sat by Pulse 97 Oximetry General appearance: Present: mild distress, well-nourished - EENT Eyes: PERRL, EOM intact ENT: hearing intact, clear oral mucosa Ears: bilateral: normal - Neck Neck: supple, normal ROM - Respiratory Respiratory effort: normal Respiratory: bilateral: CTA - Breasts Breasts: normal - Cardiovascular Heart rate: 78 Rhythm: regular Heart Sounds: Present: S1 & S2. Absent: gallop, rub Extremities: pulses intact, No edema, normal color, Full ROM - Gastrointestinal General gastrointestinal: Present: soft, non-tender, non-distended, normal bowel sounds - Genitourinary Male genitourinary: normal - Integumentary Integumentary: clear, warm, dry - Musculoskeletal Musculoskeletal: 1, strength equal bilaterally - Neurologic Neurologic: moves all extremities - Psychiatric Psychiatric: memory intact, appropriate mood/affect, intact judgment & insight - Labs CBC & Chem 7: 11/25/20 03:39 11/26/20 04:30 Labs: Abnormal lab results 11/25/20 11/26/20 11/26/20 Range/Units 23:15 04:30 07:38 BUN 58 H (9-20) mg/dL Creatinine 6.2 H (0.8-1.3) mg/dL Glucose 358 H (75-100) mg/dL POC Glucose 308 H 358 H (70-105) mg/dL 11/26/20 11/26/20 Range/Units 11:25 16:41 BUN (9-20) mg/dL Creatinine (0.8-1.3) mg/dL Glucose (75-100) mg/dL POC Glucose 393 H 384 H (70-105) mg/dL HEART Score - HEART Score Troponin: Troponin T 0.330 ng/mL (0.00-0.029) H* 11/24/20 05:12
[2020-11-26] MEDS: GABAPENTIN 100 MG CAP PO SCH (21:23)
[2020-11-27] MEDS: METOPROLOL TARTRATE 25 MG TAB PO SCH ×3 (00:47→12:48)
[2020-11-27] MEDS: INSULIN LISPRO 100 UNIT/ML VIAL 3 mL SUB-Q SCH ×4 (08:04→17:26)
[2020-11-27] MEDS ORDERED: INSULIN LISPRO 100 UNIT/ML VIAL 3 mL SUB-Q NR (09:56)
[2020-11-27] MEDS: CLOPIDOGREL 75 MG TAB PO SCH (10:35)
[2020-11-27] MEDS: APIXABAN 2.5 MG TAB PO SCH (10:35)
[2020-11-27] MEDS: dexAMETHasone 4 MG/ML VIAL IV SCH (10:36)
[2020-11-27] MEDS: CILOSTAZOL 100 MG TAB PO SCH (10:36)
[2020-11-27] MEDS: CALCIUM CARBONATE 500 MG TAB CHEW PO SCH ×3 (10:49→17:28)
--- NOTE | 2020-11-27 11:43 | Progress Note ---
Assessment and Plan Cultures: Blood culture pending A/P: 80-year-old male past medical history ESRD on HD, diabetes, cholesterol admitted from dialysis to COVID-19 #Severe COVID-19 pneumonia: Patient presented with a week of symptoms, chest x- ray with diffuse bilateral infiltrates. No PE on CT #Acute hypoxemic respiratory failure: Likely secondary to COVID-19 infection. Currently on HFNC #ESRD on HD: Renally dose medications, not a candidate for remdesivir. #Diabetes: tight glycemic control for best outcomes. #Leukocytosis: Likely secondary to steroids Recs: -Not a candidate for remdesivir due to ESRD on HD -Continue Dexamethasone 6 mg IV/PO daily for 10 days -Obtain daily inflammatory markers - ferritin, Ddimer, CRP, LDH -Procalcitonin unreliable and end-stage renal disease as it is renally cleared High risk mortality due to severe COVID-19 infection and comorbidities. Thank you for the consult, we will continue to follow. Carroll Guerra MD [facility] O: [phone] F: [phone] Subjective Date of service: 11/27/20 Principal diagnosis: Passed out few hours before admission Interval history: Afebrile, no acute changes. Currently in 8L liters nasal cannula. Objective - Exam Narrative Exam: Physical exam deferred due to PPE conservation strategy. Please refer to primary team's note. - Constitutional Vitals: Vital Signs Temp Pulse Resp BP Pulse Ox 98.7 F 84 16 113/55 95 11/27/20 10:39 11/27/20 10:39 11/27/20 10:39 11/27/20 10:39 11/27/20 10:39 Temperature -Last 24 Hours Temperature 98.7 F Temperature 98.0 F Temperature 97.7 F Temperature 98.1 F Temperature 100.3 F - Labs CBC & Chem 7: 11/25/20 03:39 11/26/20 04:30 Labs: Abnormal lab results 11/26/20 11/26/20 11/26/20 Range/Units 11:25 16:41 21:58 POC Glucose 393 H 384 H 396 H (70-105) mg/dL 11/27/20 11/27/20 Range/Units 07:33 09:31 POC Glucose 418 H 458 H (70-105) mg/dL
[2020-11-27] MEDS ORDERED: DIGOXIN 0.5 MG/2 ML INJ IV SCH (12:00)
--- NOTE | 2020-11-27 12:32 | Progress Note ---
Assessment and Plan - Patient Problems (1) Atrial fibrillation Current Visit: Yes Status: Acute Plan to address problem: Patient presents to the hospital with COVID-19 infection, found to have atrial fibrillation. The atrial fibrillation appears likely chronic, patient presented on oral anticoagulation therapy. We will continue Eliquis for anticoagulation, and a rate control strategy. The atrial fibrillation rate is well controlled on metoprolol and digitalis, with occasional high rates depending on the patient's physiological state. Subjective Date of service: 11/27/20 Principal diagnosis: Passed out few hours before admission Interval history: The patient is comfortable in no acute distress. The atrial fibrillation rate is well controlled on metoprolol and digitalis, with occasional high rates depending on the patient's physiological state. Objective Vital Signs Temp Pulse Resp BP Pulse Ox 11/27/20 10:39 98.7 F 84 16 113/55 95 11/27/20 05:38 116/45 11/27/20 05:09 98.0 F 97 H 16 116/45 96 11/27/20 00:47 88/44 11/26/20 22:21 97.7 F 109 H 22 83/44 100 11/26/20 22:00 18 11/26/20 20:59 100 11/26/20 16:42 98.1 F 87 18 107/60 97 11/26/20 15:00 150 H 115/60 11/26/20 13:20 100.3 F H 20 11/26/20 13:19 60 113/64 98 - Physical Examination Narrative exam: Full physical exam is deferred due to the patient's positive COVID-19 infection status. General: No Apparent Distress
--- NOTE | 2020-11-27 16:47 | Progress Note ---
Assessment and Plan (1) COVID-19 infection Current Visit: Yes Status: Acute Plan to address problem: -11/24 COVID-19 PCR positive -Trend inflammatory markers for risk stratification -Anticoagulation per protocol, Eliquis twice daily -Supplemental oxygen as needed -Pulmonary hygiene -Continuous pulse monitoring -OOB 3 times daily however patient has bilateral BKA -Prone to sleep as tolerated -Infectious disease consulted, appreciate recommendations -S/p antibiotic therapy -Steroid therapy -Patient is not a candidate for remdesivir because of his CKD -11/23 CXR shows atelectasis worse on the left -11/23 CTA chest shows no evidence of pulmonary embolism with evidence of bilateral pneumonia worse on the left (2) Acute respiratory failure with hypoxia Current Visit: Yes Status: Acute Plan to address problem: -Symptoms oxygen as needed -Wean as tolerated -Pulmonary hygiene -Steroid therapy -Continue SPO2 monitoring (3) Elevated D-dimer Current Visit: Yes Status: Acute Plan to address problem: -11/23 D-dimer 1524, 11/24/207 -11/23 CTA chest shows no evidence of pulmonary embolism with evidence of bilateral pneumonia worse on the left (4) ESRD on dialysis Current Visit: Yes Status: Chronic Plan to address problem: -Nephrology consulted -Hemodialysis per nephrology team -Avoid nephrotoxic medications -Renally dose medications -Strict intake and output -Daily weights -11/23 proBNP 70,000 (5) Hypothyroidism (acquired) Current Visit: Yes Status: Chronic Plan to address problem: -Continue Synthroid therapy (6) Hyperlipidemia Current Visit: Yes Status: Chronic Qualifiers: Hyperlipidemia type: mixed hyperlipidemia Qualified Code(s): E78.2 - Mixed hyperlipidemia Plan to address problem: -Continue home statin (7) Insulin dependent diabetes mellitus Current Visit: Yes Status: Chronic Plan to address problem: -SSI -Accu-Cheks AC at bedtime -Hypoglycemia protocol (7) Atrial Fibrillation Current Visit: Yes Status: Chronic Plan to address problem: -Cardiology consulted, appreciate recommendations -Eliquis for anticoagulation -Metoprolol and digoxin for rate control (8) DVT prophylaxis Current Visit: Yes Status: Acute Plan to address problem: On Lovenox and GI prophylaxis Subjective Principal diagnosis: Passed out few hours before admission Interval history: 80-year-old male with end-stage renal disease on dialysis Friday, , Friday, diabetes, and elevated cholesterol who presented to the emergency department on 11/23 after a syncopal episode during dialysis and he was noticeably dyspneic with audible rhonchi. Patient was admitted to the hospita list service and was found to be COVID-19. At the time of my examination this morning patient is on 3 L nasal cannula, is hyperglycemic and RN reports decreased p.o. intake. At the time my examination patient does not open his eyes to verbal stimuli however moans and groans tactile stimuli. RN instructed to place NG tube for nutrition. Patient's tongue also noted to have a black spot on it. Day #2 11/25/2020 Patient is on 10 L nasal cannula oxygen in slight respiratory distress Objective - Constitutional Vitals: Vital Signs - 12hr 11/27/20 11/27/20 11/27/20 05:09 05:38 10:39 Temperature 98.0 F 98.7 F Pulse Rate 97 H 84 Respiratory 16 16 Rate Blood Pressure 116/45 116/45 113/55 O2 Sat by Pulse 96 95 Oximetry 11/27/20 11/27/20 11/27/20 12:48 13:08 16:11 Temperature Pulse Rate 84 72 Respiratory Rate Blood Pressure 113/55 113/55 O2 Sat by Pulse 96 Oximetry General appearance: Present: no acute distress - EENT Eyes: EOM intact ENT: hearing decreased, poor dentition - Neck Neck: normal ROM - Respiratory Respiratory effort: normal Respiratory: bilateral: diminished - Cardiovascular Rhythm: regular Heart Sounds: Present: S1 & S2. Absent: systolic murmur, diastolic murmur Extremities: no ischemia, pulses intact, pulses symmetrical, No edema, normal temperature, normal color - Gastrointestinal General gastrointestinal: Present: soft, non-tender, non-distended, normal bowel sounds - Integumentary Integumentary: warm, dry - Musculoskeletal Musculoskeletal: other (Unable to follow commands) - Neurologic Neurologic: moves all extremities (To to painful stimuli) - Psychiatric Psychiatric: other (Uncooperative, does not open eyes to verbal stimuli) - Allied health notes Allied health notes reviewed: nursing, social work, case management - Labs CBC & Chem 7: 11/25/20 03:39 11/26/20 04:30 Labs: Abnormal lab results 11/26/20 11/27/20 11/27/20 Range/Units 21:58 07:33 09:31 POC Glucose 396 H 418 H 458 H (70-105) mg/dL 11/27/20 11/27/20 Range/Units 12:26 15:31 POC Glucose 362 H 282 H (70-105) mg/dL HEART Score - HEART Score Troponin: Troponin T 0.330 ng/mL (0.00-0.029) H* 11/24/20 05:12
--- NOTE | 2020-11-27 17:25 | Progress Note ---
Assessment and Plan ESRD on HD: Hyperkalemia: Covid 19 infection: Acute hypoxic respiratory failure Syncope: Anion Gap Metabolic acidosis: Elevated D-Dimer Atrial Fibrillation Plan: -HD today for UF and clearance -Assess need for HD on daily basis -Check phosphorus level in am -Orders for nurse to confirm if pt is taking calcium carbonate and/or Velphoro as outpatient -Renally dose meds -Outpatient HD TTS -Renal plan d/w Dr Garcia Subjective Date of service: 11/27/20 Principal diagnosis: Passed out few hours before admission Interval history: Pt on isolation for COVID-19, pt not examined to limit direct contact/resources of PPE, reviewed medical chart, labs, and notes Objective - Vital Signs Vital signs: Vital Signs - 12hr 11/27/20 11/27/20 11/27/20 05:38 10:39 12:48 Temperature 98.7 F Pulse Rate 84 84 Respiratory 16 Rate Blood Pressure 116/45 113/55 113/55 O2 Sat by Pulse 95 Oximetry 11/27/20 11/27/20 13:08 16:11 Temperature Pulse Rate 72 Respiratory Rate Blood Pressure 113/55 O2 Sat by Pulse 96 Oximetry - Lab 11/25/20 03:39 11/26/20 04:30 Most recent lab results ABG pH 7.382 pH Units (7.350-7.450) 11/23/20 18:55 ABG pCO2 35.6 mm Hg 11/23/20 18:55 ABG pO2 55.0 mm Hg (80.0-90.0) L 11/23/20 18:55 ABG HCO3 20.7 mmol/L (20.0-26.0) 11/23/20 18:55 ABG O2 Saturation 87.5 % (95.0-99.0) L 11/23/20 18:55 Calcium 9.4 mg/dL (8.4-10.2) 11/26/20 04:30 Medications & Allergies - Medications Allergies/Adverse Reactions: Allergies No Known Allergies Allergy (Verified 11/24/20 05:46) Home Medications: Home Medications Medication Instructions Recorded Confirmed Last Taken Type AtorvaSTATin [Lipitor] 10 mg PO QHS 11/23/20 11/23/20 Unknown History Calcium Carbonate [Tums Ultra 940 mg PO TID 11/23/20 11/23/20 Unknown History Strength] Clopidogrel [Plavix] 75 mg PO QDAY 11/23/20 11/23/20 Unknown History Gabapentin [Neurontin] 100 mg PO QHS 11/23/20 11/23/20 Unknown History Lispro Insulin [HumaLOG] 0 unit SQ ACHS 11/23/20 11/23/20 Unknown History Sucroferric Oxyhydroxide(Nf) 500 mg PO TID 11/23/20 11/23/20 Unknown History [Velphoro (Nf)] cilostazoL [Pletal] 50 mg PO BID 11/23/20 11/23/20 Unknown History Apixaban [Eliquis] 5 mg PO BID 11/24/20 11/24/20 11/23/20 08:00 History Active Medications: Generic Name Dose Route Start Last Admin Trade Name Freq PRN Reason Stop Dose Admin Acetaminophen 650 mg 11/24/20 00:58 11/26/20 13:23 Acetaminophen 325 Mg Tab PO 650 mg Q4H PRN Administration Pain MILD(1-3)/Fever >100.5/CARDENAS Apixaban 2.5 mg 11/24/20 10:00 11/27/20 10:35 Apixaban 2.5 Mg Tab PO 2.5 mg BID ESTRELLA Administration Protocol Atorvastatin Calcium 40 mg 11/27/20 22:00 Atorvastatin 10 Mg Tab PO QHS ESTRELLA Calcium Carbonate/Glycine 1,000 mg 11/24/20 08:00 11/27/20 12:53 Calcium Carbonate 500 Mg Tab Chew PO Not Given TIDWM ESTRELLA Cilostazol 50 mg 11/24/20 10:00 11/27/20 10:36 Cilostazol 100 Mg Tab PO 50 mg BID ESTRELLA Administration Clopidogrel Bisulfate 75 mg 11/24/20 10:00 11/27/20 10:35 Clopidogrel 75 Mg Tab PO 75 mg QDAY ESTRELLA Administration Dexamethasone 6 mg 11/24/20 10:00 11/27/20 10:36 Dexamethasone 4 Mg/Ml Vial IV 12/03/20 10:01 6 mg Q24HR ESTRELLA Administration Dextrose 50 ml 11/24/20 00:58 Dextrose 50% In Water (25gm) 50 Ml Syringe IV Q30MIN PRN Hypoglycemia Protocol Digoxin 0.125 mg 11/27/20 12:00 11/27/20 16:11 Digoxin 0.5 Mg/2 Ml Inj IV 0.125 mg Q48H ESTRELLA Administration Gabapentin 100 mg 11/24/20 22:00 11/26/20 21:23 Gabapentin 100 Mg Cap PO 100 mg QHS [facility] Administration Sodium Chloride 100 mls @ 999 mls/hr 11/24/20 10:08 Nacl 0.9% IV DILLON PRN Hypotension Insulin Human Lispro 0 unit 11/24/20 07:30 11/27/20 12:47 Insulin Lispro 100 Unit/Ml Vial 3 Ml SUB-Q 8 unit ACHS [facility] Administration Protocol Magnesium Hydroxide 30 ml 11/24/20 00:58 Magnesium Hydroxide (Mom) Oral Liqd Udc PO Q4H PRN Constipation Metoprolol Tartrate 25 mg 11/26/20 18:00 11/27/20 12:48 Metoprolol Tartrate 25 Mg Tab PO Not Given Q6HR [facility] Miscellaneous Medication 500 mg 11/24/20 08:00 11/24/20 12:03 Sucroferric Oxyhydroxide(Nf) PO Not Given TID [facility] Morphine Sulfate 2 mg 11/24/20 00:58 Morphine 2 Mg/1 Ml Inj IV Q4H PRN Pain, Moderate (4-6) Ondansetron HCl 4 mg 11/24/20 00:58 Ondansetron 4 Mg/2 Ml Inj IV Q8H PRN Nausea And Vomiting Sodium Chloride 10 ml 11/24/20 10:00 11/27/20 10:48 Sodium Chloride 0.9% 10 Ml Flush Syringe IV 10 ml BID ESTRELLA Administration Sodium Chloride 10 ml 11/24/20 00:58 Sodium Chloride 0.9% 10 Ml Flush Syringe IV PRN PRN LINE FLUSH
--- NOTE | 2020-11-27 23:13 | XRay Report ---
XR abdomen 1V ap INDICATION: Dobhof placement COMPARISON: 11/23/2020. FINDINGS/IMPRESSION: 1. Feeding tube terminates in the proximal stomach. 2. Persistent parenchymal opacities in the visualized left lung. Signer Name: Agustin Henson MD Signed: 11/27/2020 11:08 PM Workstation Name: [id number]
[2020-11-28] MEDS: CILOSTAZOL 100 MG TAB PO SCH (00:49)
[2020-11-28] MEDS: APIXABAN 2.5 MG TAB PO SCH (00:49)
[2020-11-28] MEDS: INSULIN LISPRO 100 UNIT/ML VIAL 3 mL SUB-Q SCH (00:50)
[2020-11-28] MEDS: GABAPENTIN 100 MG CAP PO SCH (00:52)
[2020-11-28] MEDS: METOPROLOL TARTRATE 25 MG TAB PO SCH (00:53)
--- NOTE | 2020-11-28 04:32 | Event Note ---
Date: 11/28/20 PANFILO BURRELL called on patient who has been on admission for acute hypoxic respiratory failure, pneumonia due to COVID-19. Patient was found in asystole. Resuscitative measures according to ACLS protocol was commenced. Patient was successfully intubated. All resuscitative measures were however futile. Upon exam: Pupils were fixed and dilated Chest: No breath sounds Cardiovascular exam: No peripheral pulses, no heart sounds Abdomen: Distended Extremities: Kobe. AKA Central nervous system: No reflexes Patient pronounced at 04:10AM on 11/28/2020 Family to be informed.
[2020-11-28 05:16] VITALS: BP 94/42
--- NOTE | 2020-11-28 08:22 | Progress Note ---
Subjective Date of service: 11/28/20 Principal diagnosis: COVID Objective - Constitutional Vitals: Vital Signs Temp Pulse Resp BP Pulse Ox 98.6 F 117 H 19 94/42 94 11/28/20 00:55 11/28/20 00:55 11/28/20 00:55 11/28/20 00:55 11/28/20 00:55 Temperature -Last 24 Hours Temperature 98.6 F Temperature 98.4 F Temperature 98.4 F Temperature 98.7 F Temperature 98.7 F - Labs CBC & Chem 7: 11/25/20 03:39 11/26/20 04:30 Labs: Abnormal lab results 11/27/20 11/27/20 11/27/20 Range/Units 09:31 12:26 15:31 POC Glucose 458 H 362 H 282 H (70-105) mg/dL 11/27/20 11/27/20 11/28/20 Range/Units 17:22 21:48 03:49 POC Glucose 254 H 185 H 392 H (70-105) mg/dL
[2020-11-28] MEDS ORDERED: DIGOXIN 0.125 MG TAB PO SCH (10:00)
--- NOTE | 2020-11-28 14:48 | Death Summary ---
Summary - Providers Consults: 11/24/20 00:06 Consult to Physician [CONS] Urgent Comment: Consulting Provider: SHERWIN ELLIS Physician Instructions: Reason For Exam: b/l infiltrates, hypoxia, r/o covid 11/24/20 00:09 Consult to Physician [CONS] Urgent Comment: Consulting Provider: AGUSTIN GRIFFIN Physician Instructions: Reason For Exam: esrd on dialyis, pneumonia, hypoxia 11/24/20 00:58 Consult to Dietitian/Nutrition [CONS] Routine Physician Instructions: Reason For Exam: Reason for Consult: Diet education 11/25/20 07:50 Speech Therapy Evaluation and Treat [CONS] Routine Reason For Exam: difficulty swallowing 11/25/20 12:06 Consult to Physician [CONS] Stat Comment: Consulting Provider: JOSEPH MERCADO Physician Instructions: Reason For Exam: high HR 11/25/20 14:29 Consult to Dietitian/Nutrition [CONS] Routine Physician Instructions: Reason For Exam: Reason for Consult: Poor oral intake 11/27/20 14:17 Physical Therapy Evaluation and Treat [CONS] Stat Comment: Reason For Exam: PT Eval and treat Attending: LORENZA RAMIREZ - summary Date of admission: 11/27/20 13:17 Date of : 11/28/20 Reason for admission: COVID 19 PNA - Complications Complications: 80-year-old male with end-stage renal disease on dialysis Friday, , Friday, diabetes, and elevated cholesterol who presented to the emergency department on 11/23 after a syncopal episode during dialysis and he was noticeably dyspneic with audible rhonchi. Patient was admitted to the hospitalist service and was found to be COVID-19. Patient was subsequently placed on 10 L high flow nasal cannula and was weaned down to 3 L nasal cannula. He was hyperglycemic and RN reported decreased p.o. intake and an NG tube was to be inserted for nutrition. Overnight a CODE BLUE called after the patient was was found in asystole. Resuscitative measures according to ACLS protocol was commenced. Patient was successfully intubated. All resuscitative measures were however futile. Dr. Ellsworth pronounced the patient at 04:10AM on 11/28/2020 (1) COVID-19 infection Current Visit: Yes Status: Acute Plan to address problem: -1/1 COVID-19 PCR positive -Trended inflammatory markers for risk stratification -Pateint was on Eliquis twice daily -Pulmonary hygiene -OOB 3 times daily however patient has bilateral BKA -Prone to sleep as tolerated -Infectious disease consulted, appreciate recommendations -S/p antibiotic therapy -Steroid therapy -Patient is not a candidate for remdesivir because of his CKD -11/23 CXR shows atelectasis worse on the left -11/23 CTA chest shows no evidence of pulmonary embolism with evidence of bilateral pneumonia worse on the left (2) Acute respiratory failure with hypoxia Current Visit: Yes Status: Acute Plan to address problem: -Symptoms oxygen as needed -Pulmonary hygiene -Steroid therapy (3) Elevated D-dimer Current Visit: Yes Status: Acute Plan to address problem: -11/23 D-dimer 1524, 11/24/207 -11/23 CTA chest shows no evidence of pulmonary embolism with evidence of bilateral pneumonia worse on the left (4) ESRD on dialysis Current Visit: Yes Status: Chronic Plan to address problem: -Nephrology consulted -Hemodialysis per nephrology team -Avoid nephrotoxic medications -Renally dose medications -Strict intake and output -Daily weights -11/23 proBNP 70,000 (5) Hypothyroidism (acquired) Current Visit: Yes Status: Chronic Plan to address problem: - Synthroid therapy (6) Hyperlipidemia Current Visit: Yes Status: Chronic Qualifiers: Hyperlipidemia type: mixed hyperlipidemia Qualified Code(s): E78.2 - Mixed hyperlipidemia Plan to address problem: -Statin therapy (7) Insulin dependent diabetes mellitus Current Visit: Yes Status: Chronic Plan to address problem: -SSI -Accu-Cheks AC at bedtime -Hypoglycemia protocol (7) Atrial Fibrillation Current Visit: Yes Status: Chronic Plan to address problem: -Cardiology consulted, appreciate recommendations -Eliquis for anticoagulation -Metoprolol and digoxin for rate control (8) DVT prophylaxis Current Visit: Yes Status: Acute Plan to address problem: -Eliquis and GI prophylaxis
== END 2020-11-28 11:36 | DRG 177 ==
LOC: ED 18:12 → 3A 11-24 00:37 → OBSVTOIN 11-27 13:17
PROVIDERS: ADMIT Internal Medicine Geriatric Medicine; ATTEND Hospitalist
PROC: 0BH17EZ Insertion of Endotracheal Airway into Trachea, Via Natural or Artificial Opening (ICD-10-PCS; 2020-11-24)
PROC: 5A1D70Z Performance of Urinary Filtration, Intermittent, Less than 6 Hours Per Day (ICD-10-PCS; 2020-11-24)
PROC: 4A033R1 Measurement of Arterial Saturation, Peripheral, Percutaneous Approach (ICD-10-PCS; principal; 2020-11-27)
PROC: 5A1D70Z Performance of Urinary Filtration, Intermittent, Less than 6 Hours Per Day (ICD-10-PCS; 2020-11-27)
PROC: 5A09357 Assistance with Respiratory Ventilation, Less than 24 Consecutive Hours, Continuous Positive Airway Pressure (ICD-10-PCS; 2020-11-28)
PROC: 5A12012 Performance of Cardiac Output, Single, Manual (ICD-10-PCS; 2020-11-28)
DX: U07.1 COVID-19 (principal); N18.6 End stage renal disease; J96.01 Acute respiratory failure with hypoxia; J12.82 Pneumonia due to coronavirus disease 2019; E11.22 Type 2 diabetes mellitus with diabetic chronic kidney disease; I48.91 Unspecified atrial fibrillation; E03.9 Hypothyroidism, unspecified; E87.5 Hyperkalemia; E78.2 Mixed hyperlipidemia; Z79.899 Other long term (current) drug therapy; Z99.2 Dependence on renal dialysis; Z89.612 Acquired absence of left leg above knee; Z89.611 Acquired absence of right leg above knee
CPT/HCPCS: 31500; 36415; 70450; 71045; 71275; 74018; 80048; 80053; 80061; 80074; 82140; 82728; 82803; 82947; 82962; 83615; 83880; 84132; 84145; 84484; 85007; 85025; 85379; 85610; 86140; 87040; 92950; 93005; 94660; 94760; 96374; 96375; G0378; A9270-GY; J0456; J0610; J0696; J1100; J1160; J1815; J7030; J7050; Q9967; U0003